=== PATIENT | female | born 2005 | race Caucasian/White ===

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

== ENCOUNTER 2023-02-01 02:22 | Emergency (ER) | payer OTHER ==
--- OUTSIDE RECORDS SUMMARY | 2023-02-01 02:26 | XMS REPORT | Continuity of Care Document ---
:2005 Author Organization [facility] t Address [address] [place] [address] Care Team Providers Name Role Phone AlbarranGabrielAdrian A Primary Care Physician Doctor Unassigned, [place] Attending Clinician Unavailable JAMARI PA Attending Clinician Unavailable Jamari Pa MD Attending Clinician Breezy Kuo Attending Clinician BREEZY OBRIEN Attending Clinician Unavailable Payers Payer Name Policy Type Policy Number Effective Date Expiration Date S ource Problems This patient has no known problems. Allergies, Adverse Reactions, Alerts Allergy Allergy Status Severity Reaction(s) Onset Inactive Treating Comm ents Source Name Type Date Date Clinician Estelafenmaryjo Propensi Active Rash Univer s sin ty to 09-10 ity of adverse 00:00: [place] reaction 00 Medical s Branch GUAIFENE DRUG Active Rash 2022-0 Univers SIN INGREDI 09-10 ity of 00:00: [place] 00 Medical Branch NO KNOWN Drug Active Univers ALLERGIE Class ity [facility] Social History Social Habit Start Date Stop Date Quantity Comments Source Gender identity [facility] [place] Sexual orientation [facility] [place] Sex Assigned At [birth year] [facility] 00:00:00 00:00:00 Medical Branch Smoking Status Start Date Stop Date Source Tobacco smoking consumption [facility] [place] [facility] unknown Branch Medications Ordered Filled Start Stop Current Ordering Indication Dosage Frequency Signature Comments Components Source Medication Medication Date Date Medication? Clinician (SIG) Name Name dexamethaso 2022- No 8mg 8 mg, [facility] ers ne sod phos 11-12 Oral, ity of PF 13:15: 13:11 ONCE, 1 [place] injection 8 00 :00 dose, On Medi roby mg Tue11/12/22 Branch at 0815, 1 mL acetaminoph 2022- No 1000mg 1,000 mg, Univers en 11-12 Oral, ity of (TYLENOL) 12:45: 12:52 [place]CE[place] tablet [place] :00 dose, On Medical 1,000 mg Tue11/12/22 Branc h at 0745, DEVIN ondansetron Yes [id number] 4mg Take 1 Univers 4 mg 8-04 tablet by ity of disintegrat 00:00: mouth [place] ing tablet 00 every 12 Medic al (twelve) Branch hours as needed for Nausea and Vomiting (N/V). ondansetron Yes [id number] 4mg Take 1 Univers 4 mg 8-04 tablet by ity of disintegrat 00:00: mouth [place] ing tablet 00 every 12 Medic al (twelve) Branch hours as needed for Nausea and Vomiting (N/V). amoxicillin 2022- Yes [id number] 500mg Take 1 Univers -pot 11-12 tablet by ity of clavulanate 00:00: 04:59 mouth [place] 500 mg 00 :00 the Medical (AUGMENTIN) morning Branc h 500-125 mg and 1 tablet tablet at noon and 1 tablet in the evening. Do all this for 10 days. acetaminoph 2022- Yes [id number] 1{tbl} Take 1 U nivers en-codeine 11-12-12 tablet by ity of 300-30 mg 00:00: 04:59 mouth [place] tablet 00 :00 every 6 Medical (six) Branch hours as needed for Pain (scale 7-10) for up to 7 days. Indication s: acute pain predniSONE 2022- Yes [id number] 20mg Take 1 Univers 20 mg 11-12- tablet by ity of tablet 00:00: 04:59 mouth in [place] 00 :00 the Medical morning Branch and 1 tablet in the evening. Do all this for 3 days. dicyclomine 2022-0 2022- No 20mg 20 mg, Uni vers (BENTYL) 09-11 Oral, ity of tablet 20 02:00: 01:05 ONCE, 1 [place] mg 00 :00 dose, On Medical Tue09/10/22 Branch at 2100, Routine proMETHazin 2022-2022- No 25mg 25 mg, IV Univers e [...] dose, On Tue09/10/22 at 1845, STAT ondansetron 2022-0 2022- No 4mg 4 mg, Slow Univers (ZOFRAN 09-10 IV Push, ity of (PF)) 22:45: 23:23 ONCE, 1 [place] injection 4 00 :00 dose, On Medi roby mg Tue09/10/22 Branch at 1745, DEVIN dicyclomine 2022-0 Yes [id number] 20mg Take 1 Univers 20 mg 6-02 tablet by ity of tablet 00:00: mouth 4 [place] 00 (four) Medical times Branch daily as needed for Abdominal pain. ondansetron 3-0 Yes [id number] 4mg Take 1 Univers 4 mg 6-02 tablet by ity of disintegrat 00:00: mouth [place] ing tablet 00 every 8 Medica l (eight) Branch hours as needed for Nausea and Vomiting (N/V). proMETHazin 3-0 Yes [id number] 25mg Take 1 Univers e 25 mg 6-02 tablet by ity of tablet 00:00: mouth [place] 00 every 6 Medical (six) Branch hours as needed for N/V unresponsi ve to Ondansetro n. dicyclomine 2022-0 Yes [id number] 20mg Take 1 Univers 20 mg 6-02 tablet by ity of tablet 00:00: mouth 4 [place] 00 (four) Medical times Branch daily as needed for Abdominal pain. ondansetron 2022-0 Yes [id number] 4mg Take 1 Univers 4 mg 6-02 tablet by ity of disintegrat 00:00: mouth [place] ing tablet 00 every 8 Medica l (eight) Branch hours as needed for Nausea and Vomiting (N/V). proMETHazin 2022-0 Yes [id number] 25mg Take 1 Univers e 25 mg 6-02 tablet by ity of tablet 00:00: mouth [place] 00 every 6 Medical (six) Branch hours as needed for N/V unresponsi ve to Ondansetro n. dicyclomine 0 Yes [id number] 20mg Take 1 Univers 20 mg 6-02 tablet by ity of tablet 00:00: mouth 4 [place] 00 (four) Medical times Branch daily as needed for Abdominal pain. ondansetron 2022-0 Yes [id number] 4mg Take 1 Univers 4 mg 6-02 tablet by ity of disintegrat 00:00: mouth [place] ing tablet 00 every 8 Medica l (eight) Branch hours as needed for Nausea and Vomiting (N/V). proMETHazin 2022-0 Yes [id number] 25mg Take 1 Univers e 25 mg 6-02 tablet by ity of tablet 00:00: mouth [place] 00 every 6 Medical (six) Branch hours as needed for N/V unresponsi ve to Ondansetro n. Vital Signs Vital Name Observation Time Observation Value Comments Source Systolic blood 2022-11-12 12:12:00 127 mm[facility]Hg[facility] 2022-11-12 12:12:00 94 mm[Hg] [facility] Heart rate 2022-11-12 12:12:00 108 /min [facility] Body temperature 2022-11-12 12:12:00 37.17 Nessa [facility] Respiratory rate 2022-11-12 12:12:00 16 /min [facility] Body height 2022-11-12 12:12:00 165.1 cm [facility] Body weight 2022-11-12 12:12:00 95.255 kg [facility] BMI 2022-11-12 12:12:00 34.95 kg/m2 [facility] Oxygen saturation in 2022-11-12 12:12:00 98 /min [place] Arterial blood by [facility] Pulse oximetry Branch Systolic blood 2022-09-11 01:50:00 107 mm[Hg] Univer sity of pressure [facility] Diastolic blood 2022-09-11 01:50:00 67 mm[Hg] Unive rsity of [facility] Heart rate 2022-09-11 01:50:00 98 /min [facility] Respiratory rate 2022-09-11 01:50:00 16 /min [facility] Oxygen saturation in 2022-09-11 01:50:00 99 /min [facility] Arterial blood by [facility] Pulse oximetry Branch Body temperature 2022-09-10 22:04:00 37.39 Nessa [facility] Body height 2022-09-10 22:04:00 165.1 cm [facility] Body weight 2022-09-10 22:04:00 100.245 kg [facility] BMI 2022-09-10 22:04:00 36.78 kg/m2 [facility] Procedures Procedure Date / Time Performed Performing Clinician Sour e REFERRAL- 2023-01-07 05:01:00 Doctor Unassigned, No [facility] REQUEST/RESPONSE Name [facility] ASSIGNMENT OF BENEFITS 2022-11-12 12:57:02 Doctor Unassigned, No [facility] Branch RAPID STREP SCREEN FOR 2022-11-12 12:19:00 Jamari Pa [facility] GROUP A [facility] Branch CONSENT/REFUSAL FOR 2022-11-12 12:08:08 Doctor Unassigned, No [facility] DIAGNOSIS AND Name [facility] TREATMENT POCT TEST 2022-09-11 00:57:00 Breezy Obrien [facility] COMP. METABOLIC PANEL 2022-09-11 00:47:00 Breezy Obrien [facility] ([id number]) [facility] URINALYSIS 2022-09-11 00:47:00 Breezy Obrien [facility] o [facility] CBC WITH DIFF 2022-09-10 23:22:00 Breezy Obrien [facility] NOTICE OF PRIVACY 2022-09-10 22:08:17 Doctor Unassigned, No [facility] PRACTICES Name [facility] CONSENT/REFUSAL FOR 2022-09-10 22:01:22 Doctor Unassigned, No [facility] DIAGNOSIS AND Name [facility] TREATMENT Encounters Start End Encounter Admission Attending Care Care Encounter Source Date/Time Date/Time Type Type Clinicians Facility Department ID 2023-01-07 2023-01-07 Orders Doctor CLEVE [id number] Univers 00:00:00 00:00:00 Only Unassigned, YULIANA [id number] ity of [place] [facility] [id number] Jose A as [id number] [address] 2022-11-12 2022-11-12 Emergency X [facility] ERT [id number] Univers 07:15:00 08:23:00 [facility] 2022-11-12 2022-11-12 Emergency [facility] [id number] Univers 07:15:00 08:23:00 Jamari LAWLER [id number] i ty of [place] [id number] [facility] [id number] [address] 2022-09-10 2022-09-10 Emergency [facility] [id number] Univers 17:06:00 20:55:00 Breezy LAWLER [id number] i ty of [place] [id number] [id number] [address] 2022-09-10 2022-09-10 Emergency X [facility] ERT [id number] Univers 17:06:00 20:55:00 BREEZY [facility] Results Test Description Test Time Test Comments Results Result Comments Source POCT TEST 2022-09-11 00:57:00 Test Item Value Reference Range Interpretation Comme nts POCT PREG (test code = 1605) Negative On board controls acceptable with C Line (test code = 3574) Yes POCT PREG LOT # (test code = 9036) [id number] POCT PREG TEST DATE (test code = 3576) 01/14/2024 Lab Interpretation (test code = 08633-4) Normal [facility] WITH [id number] 00:28:45 Test Item Value Reference Range Interpretation Comments WBC (test code = 11.89 See_Comment H [Automated 6290-2) message] The sy stem which generated this result transmitted reference range : 4.30 - 11.10 10*3/?L. The reference range was not used to interpret this result as normal/abnormal . RBC (test code = 5.30 See_Comment H [Automated 519-8) message] The sy stem which generated this [...] RDW-SD (test code = 41.6 fL 39.0-49.9 00308-2) RDW-CV (test code = 14.8 % 12.0-15.5 788-0) PLT (test code = 207 See_Comment [Automated 777-3) message] The sy stem which generated this result transmitted reference range : 166 - 358 10*3/ ?L. The reference r tiffany was not used to interpret this result as normal/abnormal . MPV (test code = 11.0 fL 9.5-12.9 26436-4) NRBC/100 WBC (test 0.0 See_Comment [Automat ed code = [id number]) message] The system which generated this result transmitted reference range : 0.0 - 10.0 /100 WBCs. The refer ence range was not u sed to interpret th is result as normal/abnormal . NRBC x10^3 (test code See_Comment [Auto mated = [id number]) message] The s ystem which generated this result transmitted reference range : 10*3/?L. The reference range was not used to interpret this result as normal/abnormal . GRAN MAT (NEUT) % 51.0 % (test code = 770-8) IMM GRAN % (test code 0.40 % = 1592230039) LYMPH % (test code = 40.3 % 736-9) MONO % (test code = 6.7 % 5905-5) EOS % (test code = 1.3 % 713-8) BASO % (test code = 0.3 % 706-2) GRAN MAT x10^3(ANC) 6.05 10*3/uL 1.88-7.09 (test code = 7190360924) IMM GRAN x10^3 (test 0.05 10*3/uL 0.00-0.06 code = 5869377701) LYMPH x10^3 (test code 4.79 10*3/uL 1.32-3.29 H = 731-0) MONO x10^3 (test code 0.80 10*3/uL 0.33-0.92 = 742-7) EOS x10^3 (test code = 0.16 10*3/uL 0.03-0.39 711-2) BASO x10^3 (test code 0.04 10*3/uL 0.01-0.07 = 704-7) REACT LYMPHS (test Rare code = 4785916951) Lab Interpretation Abnormal (test code = 91525-9) [facility]
[2023-02-01] MEDS ORDERED: CODEINE 30MG/APAP 300MG TAB ONE (03:18)
[2023-02-01] MEDS ORDERED: IBUPROFEN 400 MG TAB ONE (03:19)
[2023-02-01] MEDS ORDERED: ONDANSETRON 4 MG (ODT) TAB ONE (03:19)
[2023-02-01] MEDS ORDERED: METOCLOPRAMIDE 5 MG TAB ONE (03:19)
[2023-02-01 03:54] LABS: Specific Gravity 1.006 (1.005-1.030)
[2023-02-01 03:55] LABS: Specific Gravity 1.006 (1.005-1.030); Urine Bacteria None Seen /HPF (<20); Urine Bilirubin NEGATIVE (Negative); Urine Blood Negative (Negative); Urine Clarity Clear (Clear); Urine Color Colorless (Yellow); Urine Glucose NEGATIVE (Negative); Urine Protein NEGATIVE (Negative); Urine RBC None Seen /HPF (None Seen); Urine Urobilinogen Normal (Normal)
--- NOTE | 2023-02-01 04:39 | ER ---
Nurse's Notes [facility] Name: Saran Ziegler Age: 17 yrs Sex: Female : 2005 Arrival Date: 02/01/2023 Time: 02: Bed IW2 Private MD: Diagnosis: Infectious gastroenteritis and colitis, unspecified;Acute viral gastroenteritis, nausea and vomiting, headache Presentation: 02/01 02:49 Chief complaint: Patient states: fever and nausea x 3 days last medicated for fever on as6 Tuesday. Coronavirus screen: Vaccine status: Patient reports being unvaccinated. Ebola Screen: Patient negative for fever greater than or equal to 101.5 degrees Fahrenheit, and additional compatible Ebola Virus Disease symptoms. Initial Sepsis Screen: Does the patient meet any 2 criteria? No. Patient's initial sepsis screen is negative. Does the patient have a suspected source of infection? No. Patient's initial sepsis screen is negative. Risk Assessment: Do you want to hurt yourself or someone else? Patient reports no desire to harm self or others. 02:49 Method Of Arrival: Ambulatory as6 02:49 Acuity: BRUCE 4 as6 Triage Assessment: 02:51 General: Appears in no apparent distress. Behavior is calm, cooperative. Pain: Denies as6 pain. GI: Reports weakness and hot flashes. 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 - Social history:: Smoking status: Patient/guardian denies using tobacco, Stopped _ months ago 1. - Family history:: not pertinent. Screenin:21 [facility] ED Fall Risk Assessment (Adult) History of falling in the last 3 months, kl including since admission No falls in past 3 months (0 pts) Confusion or Disorientation No (0 pts) Intoxicated or Sedated No (0 pts) Impaired Gait No (0 pts) Mobility Assist Device Used No (0 pt) Altered Elimination No (0 pt) Score/Fall Risk Level 0 - 2 = Low Risk Oriented to surroundings, Maintained a safe environment. Abuse screen: Denies threats or abuse. Nutritional screening: No deficits noted. Tuberculosis screening: No symptoms or risk factors identified. Assessment: 03:20 General: Appears in no apparent distress. Behavior is calm, cooperative. Pain: Denies kl pain. Neuro: No deficits noted. Cardiovascular: No deficits noted. Respiratory: No deficits noted. Airway is patent Trachea midline Respiratory effort is even, unlabored, Respiratory pattern is regular, symmetrical. GI: Reports nausea. : No deficits noted. No signs and/or symptoms were reported regarding the genitourinary system. EENT: Reports nasal congestion. 04:50 Reassessment: Patient appears in no apparent distress at this time. Patient is alert, kl oriented x 3, equal unlabored respirations, skin warm/dry/pink. Vital Signs: 02:49 BP 115 / 61; Pulse 110; Resp 18; Temp 99.1(TE); Pulse Ox 99% on R/A; Weight 99.79 kg as6 (R); Height 5 ft. 6 in. ; 02:49 Body Mass Index 35.51 (99.79 kg, 167.64 cm) - Percentile 97.4 % as6 ED Course: 02:29 Patient arrived in ED. gm2 02:44 Fercho Denney MD is Attending Physician. sp4 02:51 Triage completed. as6 03:20 Urinalysis W/Microscopic Sent. kl 03:20 Test, Urine Sent. kl 03:20 COVID-19 SARS RT PCR Sent. kl 03:20 Influenza Screen (a \T\ B) Sent. kl 03:21 Patient has correct armband on for positive identification. Provided Education on: wait kl time. 04:00 No apparent distress. Resting quietly. kl 04:50 No provider procedures requiring assistance completed. Patient did not have IV access kl during this emergency room visit. Administered Medications: 03:10 Drug: Ondansetron PO 8 mg PO once Route: PO; kl 04:50 Follow up: Response: No adverse reaction; Marked relief of symptoms kl 03:10 Drug: Ibuprofen PO 800 mg PO once Route: PO; kl 04:50 Follow up: Response: No adverse reaction; Marked relief of symptoms kl 03:10 Drug: Acetaminophen-Codeine PO (300 mg-30 mg) 2 tabs PO once; RASS on ADMIN: Combtv4, kl Very Agttd3, Agttd2, Rstlss1, AlertClm0, Drwsy-1, Lt Sdtn-2, Mod Sdtn-3, Dp Sdtn-4, UnArsble-5 Route: PO; 04:50 Follow up: Response: No adverse reaction; Marked relief of symptoms 03:10 Drug: MetoCLOPramide PO 10 mg PO once Route: PO; 04:50 Follow up: Response: No adverse reaction; Marked relief of symptoms Outcome: 04:39 Discharge ordered by MD. dill 04:51 Discharged to home ambulatory, with significant other, 04:51 Condition: improved 04:51 Discharge instructions given to patient, Instructed on discharge instructions, follow up and referral plans. medication usage, Demonstrated understanding of instructions, follow-up care, medications, Prescriptions given X 2, 04:51 Patient left the ED. Signatures: Garima Crooks RN RN kl Slawson, Ashby, RN RN as6 Fercho Denney MD MD sp4 Codie Odell 2
--- NOTE | 2023-02-01 04:39 | EDPHYS ---
Physician Documentation [facility] Name: Saran Ziegler Age: 17 yrs Sex: Female : 2005 Arrival Date: 02/01/2023 Time: 02: Bed IW2 Private MD: ED Physician Fercho Denney HPI: 02/01 02:59 This 17 yrs old Female presents to ER via Ambulatory with complaints of Flu sp4 Symptoms, Fever. 02:59 17-year-old female presents with acute onset of fever at home starting 4 days ago sp4 associated with vomiting, fatigue, headache, rhinorrhea. Patient states temperature was as high as 101.0. Patient reports history of ADHD, she takes Adderall 15 milligram extended release tablet. Patient denied any diarrhea. Reported sick contacts at home.. 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 - Social history:: Smoking status: Patient/guardian denies using tobacco, Stopped _ months ago 1. - Family history:: not pertinent. ROS: 02:59 Constitutional: Positive for fever, positive fatigue, positive headache, positive sp4 rhinorrhea, positive vomiting 02:59 All other systems are negative, Exam: 02:59 Constitutional: This is a well developed, well nourished patient who is awake, alert, sp4 and in no acute distress. Head/Face: Normocephalic, atraumatic. Eyes: Pupils equal round and reactive to light, extra-ocular motions intact. Lids and lashes normal. Conjunctiva and sclera are not injected. Cornea within normal limits. Periorbital areas with no swelling, redness, or edema. ENT: Nares patent. No nasal discharge, no septal abnormalities noted. Tympanic membranes are normal and external auditory canals are clear. Oropharynx with no redness, swelling, or masses, exudates, or evidence of obstruction, uvula midline. Mucous membranes moist. Neck: Trachea midline, no thyromegaly or masses palpated, and no cervical lymphadenopathy. Supple, full range of motion without nuchal rigidity, or vertebral point tenderness. Chest/axilla: Normal chest wall appearance and motion. Nontender with no deformity. No lesions are appreciated. Cardiovascular: Regular rate and rhythm with a normal S1 and S2. No gallops, murmurs, or rubs. Normal PMI, no JVD. No pulse deficits. Respiratory: Lungs have equal breath sounds bilaterally, clear to auscultation and percussion. No rales, rhonchi or wheezes noted. No increased work of breathing, no retractions or nasal flaring. Abdomen/GI: Soft, non-tender, with normal bowel sounds. No distension or tympany. No guarding or rebound. No evidence of tenderness throughout. Back: No spinal tenderness. No costovertebral tenderness. Skin: Warm, dry with normal turgor. Normal color with no rashes, no lesions, and no evidence of cellulitis. MS/ Extremity: Pulses equal, no cyanosis. Neurovascular intact. Full, normal range of motion. Neuro: Awake and alert, GCS 15, oriented to person, place, time, and situation. Cranial nerves II-XII grossly intact. Motor strength 5/5 in all extremities. Sensory grossly intact. Psych: Awake, alert, with orientation to person, place and time. Behavior, mood, and affect are within normal limits Vital Signs: 02:49 BP 115 / 61; Pulse 110; Resp 18; Temp 99.1(TE); Pulse Ox 99% on R/A; Weight 99.79 kg as6 (R); Height 5 ft. 6 in. ; 02:49 Body Mass Index 35.51 (99.79 kg, 167.64 cm) - Percentile 97.4 % as6 MDM: 02:45 Patient medically screened. sp4 03:02 Differential diagnosis: viral Infection, bacterial infection. Data reviewed: vital sp4 signs, nurses notes, old medical records, lab test result(s), radiologic studies, CT scan, ultrasound. 04:37 ED course: Patient is negative for COVID and influenza. Patient felt improved and was sp4 able to tolerate p.o. water . Will advise clear liquid diet for 24 hours after that brat diet. Will prescribe Phenergan as needed for nausea and also ibuprofen high-dose as needed for headache, will be provided for 3 days work release. . 02/01 02:44 Order name: Influenza Screen (a \T\ B); Complete Time: 04: sp4 02/01 02:44 Order name: COVID-19 SARS RT PCR; Complete Time: : sp4 02/01 02:45 Order name: Test, Urine; Complete Time: 04: sp4 02/01 02:58 Order name: Urinalysis W/Microscopic; Complete Time: : sp4 02/01 02:59 Order name: PO challenge; Complete Time: 03:20 sp4 Administered Medications: 03:10 Drug: Ondansetron PO 8 mg PO once Route: PO; kl 04:50 Follow up: Response: No adverse reaction; Marked relief of symptoms kl 03:10 Drug: Ibuprofen PO 800 mg PO once Route: PO; kl 04:50 Follow up: Response: No adverse reaction; Marked relief of symptoms kl 03:10 Drug: Acetaminophen-Codeine PO (300 mg-30 mg) 2 tabs PO once; RASS on ADMIN: Combtv4, kl Very Agttd3, Agttd2, Rstlss1, AlertClm0, Drwsy-1, Lt Sdtn-2, Mod Sdtn-3, Dp Sdtn-4, UnArsble-5 Route: PO; 04:50 Follow up: Response: No adverse reaction; Marked relief of symptoms kl 03:10 Drug: MetoCLOPramide PO 10 mg PO once Route: PO; kl 04:50 Follow up: Response: No adverse reaction; Marked relief of symptoms kl Disposition Summary: 02/01/23 04:39 Discharge Ordered Problem: new sp4 Symptoms: have improved sp4 Condition: Stable sp4 Diagnosis - Infectious gastroenteritis and colitis, unspecified sp4 - Acute viral gastroenteritis, nausea and vomiting, headache sp4 Followup: sp4 - With: Private Physician - When: 7 - 10 days - Reason: Recheck today's complaints Discharge Instructions: - Discharge Summary Sheet sp4 - Viral Gastroenteritis, Adult sp4 Forms: - Patient Portal Instructions sp4 Prescriptions: - Ibuprofen 800 mg Oral tablet - take 1 tablet ORAL route every 8 hours As needed PRN headache; 30 tablet; sp4 Refills: 0, Product Selection Permitted - promethazine 25 mg Oral tablet - take 1 tablet ORAL route every 6 hours As needed PRN nausea; 30 tablet; sp4 Refills: 0, Product Selection Permitted Signatures: Dispatcher [employer] Garima Meng RN RN kl Slawson, Ashby, RN RN as6 Fercho Denney MD MD sp4
== END 2023-02-01 04:51 | disposition home or self-care (01) ==
LOC: ER 02:22
DX: A08.4 Viral intestinal infection, unspecified (principal); R51.9 Headache, unspecified; Z20.822 Contact with and (suspected) exposure to COVID-19; Z88.8 Allergy status to other drugs, medicaments and biological substances; Z91.018 Allergy to other foods
CPT/HCPCS: 81001; 81025; 87635; 87804 ×2; Q0162

== ENCOUNTER 2023-11-28 09:54 | Emergency (ER) | payer OTHER ==
[2023-11-28] MEDS ORDERED: KETOROLAC 30 MG/ML INJ ONE (10:20)
[2023-11-28] MEDS ORDERED: ONDANSETRON 4 MG/2 ML VIAL ONE (10:20)
[2023-11-28] MEDS ORDERED: FAMOTIDINE 20 MG/2 ML VIAL IV ONE (10:20)
[2023-11-28] MEDS ORDERED: NA CHLORIDE 0.9% 1,000 ML ONE (10:20)
[2023-11-28 10:49] LABS: Absolute Eosinophils 0.1 K/uL (0-0.5); Absolute Lymphocytes (CBC) 1.6 K/uL (0.7-4.9); Absolute Monocytes 0.6 K/uL (0.1-1.3); Absolute Neutrophil 7.6 K/uL (1.8-8.0); Basophils % 0.3 % (0-1.3); Eosinophils % 1.4 % (0-4.4); Hematocrit 41.1 % (36.0-45.0); Lymphocytes % 16.1 % (15.3-44.8); MCH 24.6 pg (27.0-35.0); MCHC 31.7 g/dL (32.0-36.0); MCV 77.6 fL (80-100); MPV 9.3 fL (7.6-11.3); Monocytes % 6.1 % (3.3-12.3); Neutrophils % 76.1 % (41.7-73.7); Platelets 258 thou/uL (152-406); Red Cell Distribution Width 16.3 % (12.1-15.2)
[2023-11-28 10:56] LABS: Specific Gravity 1.019 (1.005-1.030)
[2023-11-28 11:00] LABS: Specific Gravity 1.019 (1.005-1.030); Urine Bacteria >50 /HPF (<20); Urine Bilirubin NEGATIVE (Negative); Urine Blood Negative (Negative); Urine Clarity Extremely Turbid (Clear); Urine Color Light-Yellow (Yellow); Urine Culture Reflex Order NOT NEEDED; Urine Glucose NEGATIVE (Negative); Urine Ketones NEGATIVE (Negative); Urine Microscopic Reflex YN ORDER UMIC; Urine Mucus Slight /HPF (None Seen); Urine Nitrite NEGATIVE (Negative); Urine Protein TRACE (Negative); Urine RBC <5 /HPF (None Seen); Urine Urobilinogen Normal (Normal); Urine WBC <5 /HPF (<5)
[2023-11-28 11:08] LABS: Albumin 3.6 g/dL (3.4-5.0); Albumin/Globulin Ratio 0.8 (1.1-1.8); Anion Gap 6.9 mEq/L (5.0-15.0); Bilirubin Total 0.5 mg/dL (0.2-1.0); Globulin 4.7 g/dL (2.3-3.5); Potassium 3.9 mEq/L (3.5-5.1); Protein, Total 8.3 g/dL (6.4-8.2)
[2023-11-28] MEDS ORDERED: CEFTRIAXONE 1000 MG/VIAL ONE (11:54)
--- NOTE | 2023-11-28 12:19 | EDPHYS ---
Physician Documentation [facility] Name: Saran Ziegler Age: 18 yrs Sex: Female : 2005 Arrival Date: 11/28/2023 Time: 09:54 Bed 15 Private MD: ED Physician Shirley Bustos HPI: 11/27 10:15 This 18 yrs old Female presents to ER via Ambulatory with complaints of Vomiting. sb4 10:15 The patient presents to the emergency department with nausea, vomiting. Onset: The sb4 symptoms/episode began/occurred last night. Possible causes: alcohol. The symptoms are aggravated by food , alcohol, The symptoms are alleviated by nothing. Associated signs and symptoms: The patient has no apparent associated signs or symptoms. The patient has experienced similar episodes in the past, a few times. The patient has not recently seen a physician. 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 - Infectious Disease History:: Denies. - Social history:: Smoking status: Reported history of juuling and/or vaping. Patient uses alcohol, occasionally. street drugs, marijuana. ROS: 10:15 Constitutional: Negative for fever, chills, and weight loss, sb4 10:15 Abdomen/GI: Positive for nausea and vomiting, 10:15 All other systems are negative, Exam: 10:15 Constitutional: This is a well developed, well nourished patient who is awake, alert, sb4 and in no acute distress. Head/Face: Normocephalic, atraumatic. Eyes: Extra-ocular motions intact. Periorbital areas with no swelling, redness, or edema. Respiratory: Lungs have equal breath sounds bilaterally, clear to auscultation and percussion. No rales, rhonchi or wheezes noted. No increased work of breathing, no retractions or nasal flaring. Abdomen/GI: Soft, non-tender, no distension. Skin: Warm, dry with normal turgor. Normal color with no rashes, no lesions, and no evidence of cellulitis. 10:15 Cardiovascular: Rate: tachycardic, Rhythm: regular, 10:15 Abdomen/GI: Vital Signs: 10:02 BP 143 / 66; Pulse 106; Resp 19; Temp 98.2(O); Pulse Ox 98% on R/A; Weight 117.93 kg; ll1 Height 5 ft. 6 in. ; Pain 4/10; 10:25 BP 135 / 74; Pulse 80; Resp 17; Pulse Ox 98% on R/A; rs5 12:20 BP 132 / 77; Pulse 76; Resp 17; Pulse Ox 98% on R/A; rs5 10:02 Body Mass Index 41.96 (117.93 kg, 167.64 cm) ll1 10:02 Pain Scale: Adult ll1 MDM: 09:58 Patient medically screened. sb4 12:19 Data reviewed: vital signs, nurses notes, lab test result(s), and as a result, I will sb4 discharge patient. Counseling: I had a detailed discussion with the patient and/or guardian regarding the historical points, exam findings, and any diagnostic results supporting the discharge/admit diagnosis, lab results, to return to the emergency department if symptoms worsen or persist or if there are any questions or concerns that arise at home. 11/27 10:06 Order name: Test, Urine; Complete Time: 11:40 [facility] 11/27 10:14 Order name: CBC with Diff; Complete Time: 10:50 [facility] 11/27 10:14 Order name: CMP; Complete Time: 11:40 [facility] 11/27 10:14 Order name: Lipase; Complete Time: 11:40 4 11/27 10:14 Order name: Urinalysis w/ reflexes; Complete Time: 11:40 [facility] 11/27 10:14 Order name: IV Saline Lock; Complete Time: 10:44 4 11/27 10:14 Order name: Labs collected and sent; Complete Time: 10:44 [facility] 11/27 11:43 Order name: PO challenge; Complete Time: 12:10 sb4 Administered Medications: 10:30 Drug: NS 0.9% IV 1000 ml IV at 1 bolus Per protocol; 1000 mL bolus Route: IV; Rate: 1 rs5 bolus; Site: right antecubital; 11:35 Follow up: IV Status: Completed infusion; IV Intake: 1000ml rs5 10:30 Drug: Famotidine IVP 20 mg IVP once; dilute with 10 mL 0.9% NaCl; give over 2 minutes rs5 Route: IVP; Site: right upper arm; 10:45 Follow up: Response: No adverse reaction rs5 10:30 Drug: TORadol - Ketorolac IVP 15 mg IVP once Route: IVP; Site: right upper arm; rs5 11:01 Follow up: Response: No adverse reaction; Pain is decreased rs5 10:30 Drug: Ondansetron IVP 4 mg IVP once; over 2 minutes Route: IVP; Site: right upper arm; rs5 11:01 Follow up: Response: No adverse reaction rs5 11:50 Drug: Rocephin IV 1 grams IV at calculated rate once; Given slow IV push per pharmacy rs5 instructions Route: IV; Rate: calculated rate; Site: right upper arm; 12:05 Follow up: Response: No adverse reaction; IV Status: Completed infusion rs5 Disposition Summary: 11/28/23 12:19 Discharge Ordered Notes: Location: Home sb4 Problem: new sb4 Symptoms: have improved sb4 Condition: Stable sb4 Diagnosis - Nausea with vomiting, unspecified sb4 - UTI/ Urinary tract infection, site not specified sb4 Followup: sb4 - With: Emergency Department - When: As needed - Reason: Trouble breathing, Worsening of condition Discharge Instructions: - Discharge Summary Sheet sb4 - Nausea and Vomiting, Adult sb4 - Urinary Tract Infection, Adult, [id number] sb4 Forms: - Antibiotic Education sb4 - Patient Portal Instructions sb4 - Leadership Thank You Letter sb4 - Work release form rs5 Prescriptions: - Macrobid 100 mg Oral Capsule - take 1 capsule ORAL route every 12 hours for 7 days; 14 capsule; Refills: 0, sb4 Product Selection Permitted - ondansetron 8 mg Oral Tablet,disintegrating - take 1 tablet ORAL route every 8 hours; 12 tablet; Refills: 0, Product sb4 Selection Permitted Signatures: Dispatcher [employer] Maggy Meng RN RN ll1 Tori Rushing PAAlexandra PAAlexandra sb4 Ronald Guevara RN RN rs5 Corrections: (The following items were deleted from the chart) 10:06 10:06 Test, Urine+UC.LAB.BRZ ordered. EDMS EDMS 10:15 10:15 CBC+H.LAB.BRZ ordered. EDMS EDMS 10:15 10:15 COMPREHENSIVE METABOLIC PANEL+C.LAB.BRZ ordered. EDMS EDMS 10:15 10:15 LIPASE+C.LAB.BRZ ordered. EDMS EDMS 10:15 10:15 Urinalysis+U.LAB.BRZ ordered. EDMS EDMS
--- NOTE | 2023-11-28 12:19 | ER ---
Nurse's Notes [facility] Name: Saran Ziegler Age: 18 yrs Sex: Female : 2005 Arrival Date: 11/28/2023 Time: 09:54 Bed 15 Private MD: Diagnosis: Nausea with vomiting, unspecified;UTI/ Urinary tract infection, site not specified Presentation: 11/27 10:02 Chief complaint:. Chief complaint: Patient states: throwing up since 9pm last night ll1 after drinking, cannot hold down water, has sore throat, chest hurts, has headache. Coronavirus screen: Vaccine status: Patient reports receiving the 2nd dose of the covid vaccine. Ebola Screen: Patient negative for fever greater than or equal to 101.5 degrees Fahrenheit, and additional compatible Ebola Virus Disease symptoms Patient denies exposure to infectious person. Patient denies travel to an Ebola-affected area in the 21 days before illness onset. No symptoms or risks identified at this time. Initial Sepsis Screen: Does the patient meet any 2 criteria? HR > 90 bpm. No. Patient's initial sepsis screen is negative. Does the patient have a suspected source of infection? No. Patient's initial sepsis screen is negative. Risk Assessment: Do you want to hurt yourself or someone else? Patient reports no desire to harm self or others. Onset of symptoms was November 27, 2023 at 21:00. 10:02 Method Of Arrival: Ambulatory ll1 10:02 Acuity: BRUCE 3 ll1 Triage Assessment: 10:05 General: Appears in no apparent distress. Behavior is calm, cooperative. Pain: ll1 Complains of pain in face Pain currently is 4 out of 10 on a pain scale. Quality of pain is described as aching. EENT: Reports sore throat. Neuro: Level of Consciousness is awake, alert, obeys commands, Oriented to person, place, time, situation. Cardiovascular: Patient's skin is warm and dry. Respiratory: Airway is patent Respiratory effort is even, unlabored, Respiratory pattern is regular, symmetrical. GI: Abdomen is round non-distended, Reports nausea, vomiting. : No signs and/or symptoms were reported regarding the genitourinary system. Derm: No signs and/or symptoms reported regarding the dermatologic system. Musculoskeletal: No signs and/or symptoms reported regarding the musculoskeletal system. [employer]TE[employer]CE: 10:05 LMP 11/21/2023, unknown ll1 Historical: - Allergies: 10:05 Strawberries; ll1 10:05 ROBITUSSIN; ll1 10:05 jalapenos; ll1 - PMHx: 10:05 Tachycardia; Depression; ll1 - PSHx: 10:05 None; ll1 - Immunization history:: Client reports receiving the 2nd dose of the Covid vaccine. - Infectious Disease History:: Denies. - Social history:: Smoking status: Reported history of juuling and/or vaping. Patient uses alcohol, occasionally. street drugs, marijuana. Screenin:10 [facility] ED Fall Risk Assessment (Adult) History of falling in the last 3 months, rs5 including since admission No falls in past 3 months (0 pts) Confusion or Disorientation No (0 pts) Intoxicated or Sedated No (0 pts) Impaired Gait No (0 pts) Mobility Assist Device Used No (0 pt) Altered Elimination No (0 pt) Score/Fall Risk Level 0 - 2 = Low Risk Oriented to surroundings, Maintained a safe environment. Abuse screen: Denies threats or abuse. Nutritional screening: No deficits noted. Tuberculosis screening: No symptoms or risk factors identified. Assessment: 10:10 General: Appears in no apparent distress. comfortable, Behavior is calm, cooperative. rs5 Pain: Complains of pain in abdomen Pain currently is 3 out of 10 on a pain scale. Quality of pain is described as aching, Is continuous. Neuro: Level of Consciousness is awake, alert, obeys commands, Oriented to person, place, time, situation. Cardiovascular: Patient's skin is warm and dry. Respiratory: Airway is patent Respiratory effort is even, unlabored, Respiratory pattern is regular, symmetrical. 10:10 GI: Abdomen is round non-distended, Abd is soft and non tender X 4 quads. Reports rs5 nausea. : No signs and/or symptoms were reported regarding the genitourinary system. EENT: No signs and/or symptoms were reported regarding the EENT system. Derm: Skin is intact, Skin is pink, warm \T\ dry. Musculoskeletal: Range of motion: intact in all extremities. 11:12 Reassessment: Patient and/or family updated on plan of care and expected duration. Pain rs5 level reassessed. Patient is alert, oriented x 3, equal unlabored respirations, skin warm/dry/pink. 11:45 Reassessment: To bedside with crackers and juice for PO challenge per MD orders, denies rs5 nausea at this moment. 11:45 Reassessment: Patient and/or family updated on plan of care and expected duration. Pain rs5 level reassessed. Patient is alert, oriented x 3, equal unlabored respirations, skin warm/dry/pink. pt consumed crackers and juice, denies nausea at this moment. 12:05 Reassessment: Patient and/or family updated on plan of care and expected duration. Pain rs5 level reassessed. Patient is alert, oriented x 3, equal unlabored respirations, skin warm/dry/pink. Vital Signs: 10:02 BP 143 / 66; Pulse 106; Resp 19; Temp 98.2(O); Pulse Ox 98% on R/A; Weight 117.93 kg; ll1 Height 5 ft. 6 in. ; Pain 4/10; 10:25 BP 135 / 74; Pulse 80; Resp 17; Pulse Ox 98% on R/A; rs5 12:20 BP 132 / 77; Pulse 76; Resp 17; Pulse Ox 98% on R/A; rs5 10:02 Body Mass Index 41.96 (117.93 kg, 167.64 cm) ll1 10:02 Pain Scale: Adult ll1 ED Course: 09:56 Patient arrived in ED. mr 09:56 [facility] sb[facility] 09:56 Shirley Bustos MD is Attending Physician. sb4 10:05 Triage completed. ll1 10:05 Arm band placed on right wrist. ll1 10:10 Patient has correct armband on for positive identification. Placed in gown. Bed in low rs5 position. Call light in reach. Side rails up X2. 10:10 No provider procedures requiring assistance completed. rs5 10:20 Inserted saline lock: 24 gauge in right upper arm, using aseptic technique. Blood rs5 collected. Flushed with 10 mL NS. 10:44 Ronald Guevara, RN is Primary Nurse. rs5 12:24 IV discontinued, intact, bleeding controlled, No redness/swelling at site. Pressure rs5 dressing applied. Administered Medications: 10:30 Drug: NS 0.9% IV 1000 ml IV at 1 bolus Per protocol; 1000 mL bolus Route: IV; Rate: 1 rs5 bolus; Site: right antecubital; 11:35 Follow up: IV Status: Completed infusion; IV Intake: 1000ml rs5 10:30 Drug: Famotidine IVP 20 mg IVP once; dilute with 10 mL 0.9% NaCl; give over 2 minutes rs5 Route: IVP; Site: right upper arm; 10:45 Follow up: Response: No adverse reaction rs5 10:30 Drug: TORadol - Ketorolac IVP 15 mg IVP once Route: IVP; Site: right upper arm; rs5 11:01 Follow up: Response: No adverse reaction; Pain is decreased rs5 10:30 Drug: Ondansetron IVP 4 mg IVP once; over 2 minutes Route: IVP; Site: right upper arm; rs5 11:01 Follow up: Response: No adverse reaction rs5 11:50 Drug: Rocephin IV 1 grams IV at calculated rate once; Given slow IV push per pharmacy rs5 instructions Route: IV; Rate: calculated rate; Site: right upper arm; 12:05 Follow up: Response: No adverse reaction; IV Status: Completed infusion rs5 Medication: 11:33 VIS not applicable for this client. rs5 Intake: 11:35 IV: 1000ml; Total: 1000ml. rs5 Outcome: 12:19 Discharge ordered by . sb4 12:24 Discharged to home ambulatory, rs5 12:24 Condition: stable 12:24 Discharge instructions given to patient, family, Instructed on discharge instructions, follow up and referral plans. medication usage, Demonstrated understanding of instructions, follow-up care, medications, Prescriptions given X 1, 12:26 Patient left the ED. rs5 Signatures: Berta Chan, Reg Reg mr Maggy Crooks, RN RN ll1 Tori Rushing PA-C PATessaC sb4 Ronald Guevara RN RN rs5 Corrections: (The following items were deleted from the chart) 13:21 11:39 BP 132 / 77; Pulse 76bpm; Resp 17bpm; Pulse Ox 98% RA; rs5 rs5
[2023-11-28 12:32] VITALS: BP 143/66; TEMP 98.2; O2SAT 98
--- OUTSIDE RECORDS SUMMARY | 2023-11-29 13:47 | XMS REPORT | Continuity of Care Document ---
Author Name Unknown Address [address] [facility] [address]. [address] [place] [address] [facility] Address [address] [facility]. [address] [place] [address] Care Team Providers Care Canoe Inspector Final Name Role Phone ALBARRANJOSEFA YUNGADRIAN A Primary Care Physician Unavailab TIMOTHY Abdul Attending Clinician Unavailable TIMOTHY RODRIGUEZ Attending Clinician Unavailable Timothy Rodriguez DO Attending Clinician [phone] ADOLPH METCALF Attending Clinician UnavailAdolph De La Garza MD Attending Clinician [phone] Doctor Unassigned, [place] Attending Clinician U navailable JAMARI PA Attending Clinician Unavailable Jamari Pa MD Attending Clinician [phone] BREEZY OBRIEN Attending Clinician Unavailable Breezy Kuo Attending Clinician [phone] Payers Payer Name Policy Type Policy Number Effective Date Expirati on Date Source [facility] [id number] 2023 00:00:00 Allergies, Adverse Reactions, Alerts Allergy Name Allergy Type Status Severity Reaction(s) Onset Date Inactive Date Treating Clinician Comments Source Guaifene sin Propensi ty to adverse reaction s Active Rash 09-10 00:00: 00 [facility] GUAIFENE SIN DRUG INGREDI Active Rash 09-10 00:00: 00 [facility] NO KNOWN ALLERGIE S Drug Class Active [facility] Social History Social Habit Start Date Stop Date Quantity Comments Source Gender identity [facility] Sex [facility] at 2005 00:00:00 2005 00:00:00 [facility] Smoking Status Start Date Stop Date Source Tobacco smoking consumption unknown [facility] Medications Ordered Medication Name Filled Medication Name Start Date Stop Date Current Medication? Ordering Clinician Indication Dosage Frequency Signature (SIG) Comments Components Source ondansetron (ZOFRAN-ODT ) disintegrat ing tablet 8 mg 11-14 18:15: 00 11-14 18:00 :00 No 8mg 8 mg, Oral, ONCE, 1 dose, On Tue11/15/23 at 1315, Routine [facility] ondansetron 4 mg disintegrat ing tablet 11-14 00:00: 00 Yes [id number] 4mg Take 1 tablet by mouth every 8 (eight) hours as needed for Nausea and Vomiting (N/V). [facility] dexamethaso ne sod phos PF injection 8 mg 11-12 13:15: 00 11-12 13:11 :00 No 8mg 8 mg, Oral, ONCE, 1 dose, On Tue11/12/22 at 0815, 1 mL [facility] acetaminoph en (TYLENOL) tablet 1,000 mg 11-12 12:45: 00 11-12 12:52 :00 No 1000mg 1,000 mg, Oral, ONCE, 1 dose, On Tue11/12/22 at 0745, DEVIN [facility] ondansetron 4 mg disintegrat ing tablet 11-12 00:00: 00 11-14 00:00 :00 No [id number] 4mg Take 1 tablet by mouth every 12 (twelve) hours as needed for Nausea and Vomiting (N/V). [facility] amoxicillin -pot clavulanate 500 mg (AUGMENTIN) 500-125 mg tablet 2023-0 8-04 00:00: 00 11-23 04:59 :00 No [id number] 500mg Take 1 tablet by mouth in the morning and 1 tablet at noon and 1 tablet in the evening. Do all this for 10 days. [facility] acetaminoph en-codeine 300-30 mg tablet 804 00:00: 00 11-20 04:59 :00 No [id number] 1{tbl} Take 1 tablet by mouth every 6 (six) hours as needed for Pain (scale 7-10) for up to 7 days. Indication s: acute pain [facility] predniSONE 20 mg tablet 11-12 00:00: 00 11-16 04:59 :00 No [id number] 20mg Take 1 tablet by mouth in the morning and 1 tablet in the evening. Do all this for 3 days. [facility] dicyclomine (BENTYL) tablet 20 mg 09-11 02:00: 00 09-11 01:05 :00 No 20mg 20 mg, Oral, ONCE, 1 dose, On Tue09/10/22 at 2100, Routine [facility] proMETHazin e (PHENERGAN) 25 mg in NaCl 0.9% (NS) 50 mL IV piggyback 09-11 01:00: 00 09-11 01:06 :00 No 25mg 25 mg, IV Piggyback, ONCE, 1 dose, On Tue09/10/22 at 2000, DEVIN [facility] NaCl 0.9% (NS) bolus infusion 1,000 mL 09-10 23:45: 00 09-11 00:57 :00 No 1000mL at 999 mL/hr, 1,000 mL, IV Infusion, ONCE, 1 dose, On Tue09/10/22 at 1845, STAT [facility] ondansetron (ZOFRAN (PF)) injection 4 mg 09-10 22:45: 00 09-10 23:23 :00 No 4mg 4 mg, Slow IV Push, ONCE, 1 dose, On Tue09/10/22 at 1745, DEVIN [facility] dicyclomine 20 mg tablet 09-10 00:00: 00 Yes [id number] 20mg Take 1 tablet by mouth 4 (four) times daily as needed for Abdominal pain. [facility] proMETHazin e 25 mg tablet 09-10 00:00: 00 Yes [id number] 25mg Take 1 tablet by mouth every 6 (six) hours as needed for N/V unresponsi ve to Ondansetro n. [facility] ondansetron 4 mg disintegrat ing tablet 09-10 00:00: 00 11-14 00:00 :00 No [id number] 4mg Take 1 tablet by mouth every 8 (eight) hours as needed for Nausea and Vomiting (N/V). [facility] Vital Signs Vital Name Observation Time Observation Value Comments S ource Systolic blood pressure 2023-11-15 17:12:00 123 mm[Hg] [facility] Diastolic blood pressure 2023-11-15 17:12:00 98 mm[Hg] [facility] Heart rate 2023-11-15 17:12:00 92 /min [facility] Body temperature 2023-11-15 17:12:00 37 Nessa [facility] Respiratory rate 2023-11-15 17:12:00 18 /min [facility] Body height 2023-11-15 17:12:00 167.6 cm [facility] Body weight 2023-11-15 17:12:00 117.935 kg [facility] BMI 2023-11-15 17:12:00 41.97 kg/m2 [facility] Oxygen saturation in Arterial blood by Pulse oximetry 2023-11-15 17:12:00 100 /min [facility] BMI 2023-11-14 19:31:00 43.27 kg/m2 [facility] Oxygen saturation in Arterial blood by Pulse oximetry 2023-11-14 19:31:00 99 /min [facility] Systolic blood pressure 2023-11-14 19:31:00 123 mm[Hg] [facility] Diastolic blood pressure 2023-11-14 19:31:00 85 mm[Hg] [facility] Heart rate 2023-11-14 19:31:00 102 /min [facility] Body temperature 2023-11-14 19:31:00 37.28 Nessa [facility] Respiratory rate 2023-11-14 19:31:00 18 /min [facility] Body height 2023-11-14 19:31:00 165.1 cm [facility] Body weight 2023-11-14 19:31:00 117.935 kg [facility] Systolic blood pressure 2022-11-12 12:12:00 127 mm[Hg] [facility] Diastolic blood pressure 2022-11-12 12:12:00 94 mm[Hg] [facility] Heart rate 2022-11-12 12:12:00 108 /min [facility] Body temperature 2022-11-12 12:12:00 37.17 Nessa [facility] Respiratory rate 2022-11-12 12:12:00 16 /min [facility] Body height 2022-11-12 12:12:00 165.1 cm [facility] Body weight 2022-11-12 12:12:00 95.255 kg [facility] BMI 2022-11-12 12:12:00 34.95 kg/m2 [facility] Oxygen saturation in Arterial blood by Pulse oximetry 2022-11-12 12:12:00 98 /min [facility] Oxygen saturation in Arterial blood by Pulse oximetry 2022-09-11 01:50:00 99 /min [facility] Systolic blood pressure 2022-09-11 01:50:00 107 mm[Hg] [facility] Diastolic blood pressure 2022-09-11 01:50:00 67 mm[Hg] [facility] Heart rate 2022-09-11 01:50:00 98 /min [facility] Respiratory rate 2022-09-11 01:50:00 16 /min [facility] Body temperature 2022-09-10 22:04:00 37.39 Nessa [facility] Body height 2022-09-10 22:04:00 165.1 cm [facility] Body weight 2022-09-10 22:04:00 100.245 kg [facility] BMI 2022-09-10 22:04:00 36.78 kg/m2 [facility] Procedures Procedure Date / Time Performed Performing Clinicia n Source INFLUENZA A/B RSV COVID NAAT 2023-11-15 17:59:00 Timothy Rodriguez [facility] REFERRAL- REQUEST/RESPONSE 2023-01-07 05:01:00 Doctor Unassigned, [place] [facility] ASSIGNMENT OF BENEFITS 2022-11-12 12:57:02 Docto r Unassigned, [place] [facility] RAPID STREP SCREEN FOR GROUP A 2022-11-12 12:19:00 Jamari Pa [facility] CONSENT/REFUSAL FOR DIAGNOSIS AND TREATMENT 2022-11-12 12:08:08 Doctor Unassigned, [place] [facility] POCT TEST 2022-09-11 00:57:00 Breezy Obrien [facility] COMP. METABOLIC PANEL ([id number]) 2022-09-11 00:47:00 Breezy Obrien [facility] URINALYSIS 2022-09-11 00:47:00 Breezy Obrien [facility] CBC WITH DIFF 2022-09-10 23:22:[address] [facility] NOTICE OF PRIVACY PRACTICES 2022-09-10 22:08:17 Doctor Unassigned, [place] [facility] CONSENT/REFUSAL FOR DIAGNOSIS AND TREATMENT 2022-09-10 22:01:22 Doctor Unassigned, [place] [facility] Encounters Start Date/Time End Date/Time Encounter Type Admission Type Attending Clinicians Care Facility Care Department Encounter ID Source 2023-11-15 12:13:00 2023-11-15 15:32:00 Emergency X TIMOTHY RODRIGUEZ [facility] ERT [id number] [facility] 2023-11-15 12:13:00 2023-11-15 15:32:00 Emergency Rodriguez, Timothy [place] 1.2840.114 350.1.13.10 [id number] [id number] [facility] 2023-11-14 14:32:00 2023-11-14 16:58:00 Emergency X ADOLPH METCALF [facility] ERT [id number] [facility] 2023-11-14 14:32:00 2023-11-14 16:58:00 Emergency Adolph Metcalf C [facility] [id number] [id number] [id number] [id number] [facility] 2023-01-07 00:00:00 2023-01-07 00:00:00 Orders Only Doctor Unassigned, [place] [facility] [id number] 350.1.13.10 [id number] [facility] 2022-11-12 07:15:00 2022-11-12 08:23:00 Emergency X VASUT, JAMARI [facility] ERT [id number] [facility] 2022-11-12 07:15:00 2022-11-12 08:23:00 Emergency Vasut, Jamari J [facility] 1.2840.114 [id number] [id number] [id number] [facility] 2022-09-10 17:06:00 2022-09-10 20:55:00 Emergency X OBRIENBREEZY [facility] ERT [id number] [facility] 2022-09-10 17:06:00 2022-09-10 20:55:00 Emergency Breezy Obrien S [facility] [id number] [id number] [id number] [id number] [facility] Results Test Description Test Time Test Comments Results Result Co mments Source [facility] WITH [id number] 00:28:45* Test Item Value Reference Range Interpretation Comme nts WBC (test code = 6690-2) 11.89 See_Comment H [Automated messa ge] The system which generated this result transmitted reference range: 4.30 - 11.10 10*3/?L. The reference range was not used to interpret this result as normal/abnormal. RBC (test code = 789-8) 5.30 See_Comment H [Automated messa ge] The system which generated this result transmitted reference range: 3.93 - 5.25 10*6/?L. The reference range was not used to interpret this result as normal/abnormal. HGB (test code = 718-7) 14.1 g/dL 11.6-15.0 HCT (test code = 4544-3) 42.0 % 35.7-45.2 MCV (test code = 787-2) 79.2 fL 80.6-95.5 L MCH (test code = 785-6) 26.6 pg 25.9-32.8 MCHC (test code = 786-4) 33.6 g/dL 31.6-35.1 RDW-SD (test code = 44090-3) 41.6 fL 39.0-49.9 RDW-CV (test code = 788-0) 14.8 % 12.0-15.5 PLT (test code = 777-3) 207 See_Comment [Automated messa ge] The system which generated this result transmitted reference range: 166 - 358 10*3/?L. The reference range was not used to interpret this result as normal/abnormal. MPV (test code = 89302-1) 11.0 fL 9.5-12.9 NRBC/100 WBC (test code = 7909883429) 0.0 See_Comment [Automated me ssage] The system which generated this result transmitted reference range: 0.0 - 10.0 /100 WBCs. The reference range was not used to interpret this result as normal/abnormal. NRBC x10^3 (test code = 9626912667) See_Comment [Automated messa ge] The system which generated this result transmitted reference range: 10*3/?L. The reference range was not used to interpret this result as normal/abnormal. GRAN MAT (NEUT) % (test code = 770-8) 51.0 % IMM GRAN % (test code = 8660511271) 0.40 % LYMPH % (test code = 736-9) 40.3 % MONO % (test code = 5905-5) 6.7 % EOS % (test code = 713-8) 1.3 % BASO % (test code = 706-2) 0.3 % GRAN MAT x10^3(ANC) (test code = 3202991673) 6.05 10*3/uL 1.88-7.09 IMM GRAN x10^3 (test code = 2708078943) 0.05 10*3/uL 0.00-0.06 LYMPH x10^3 (test code = 731-0) 4.79 10*3/uL 1.32-3.29 H MONO x10^3 (test code = 742-7) 0.80 10*3/uL 0.33-0.92 EOS x10^3 (test code = 711-2) 0.16 10*3/uL 0.03-0.39 BASO x10^3 (test code = 704-7) 0.04 10*3/uL 0.01-0.07 REACT LYMPHS (test code = 2436934855) Rare Lab Interpretation (test code = 93241-6) Abnormal [facility] Notes Date/Time Note Provider Source 2023-11-15 15:30:21 Patient dc home. Follow up with pcp. Verbalized understanding. Signed paper work. Laurie Clay RN [facility] 2023-11-15 12:06:47 Patient states "I puke yesterday at work once and I feel nauseous." Javier Sullivan RN [facility] 2023-11-15 11:56:00 [facility] Emergency Department Note Patient Name: Ceci Jacobs Date of : 2005 18 year old female Treatment [facility] Primary Care Physician: Adrian Albarran Patient Escorted by: Family [5] Mode of Arrival: Personal means [1] EMS Treatment Prior to ED Arrival: Travel and Exposure Screening: Symptoms Does patient have any of these symptoms?: (not recorded) Exposure Screening Has patient had contact with someone with a communicable disease in the last month?: (not recorded) Diseases exposed to:: (not recorded) Is Patient ?: (not recorded) Exposure Date: (not recorded) Chief Complaint: Chief Complaint Patient presents with Nausea History of Present Illness: 18-year-old female presented for evaluation of nausea and vomiting that started yesterday. She states that she had been sick at work while at [employer]. She states that she has had intermittent nausea vomiting since then. No specific localizing abdominal pain. Afebrile. Past Medical History/Immunizations: No past medical history on file. Allergies: Allergies Allergen Reactions Tussin [Guaifenesin] Rash Past Social History: Substance & Sexual Activity No substance use or sexual activity history on file. Past Surgical History: No past surgical history on file. Review of Systems: Review of Systems Constitutional: Negative for fever. Respiratory: Negative for cough and shortness of breath. Cardiovascular: Negative for chest pain. Gastrointestinal: Positive for nausea and vomiting. Musculoskeletal: Negative for arthralgias. Skin: Negative for rash and wound. Neurological: Negative for syncope and weakness. Physical Exam: ED Triage Vitals [11/15/23 1212] Weight 117.9 kg (260 lb) Actual or estimated Height 1.676 m (5' 6") BP (!) 123/98 Pulse 92 Resp 18 Temp 37 ?C (98.6 ?F) Temp source Oral SpO2 100 % Measured on Room air Physical Exam Vitals and nursing note reviewed. Constitutional: General: She is not in acute distress. Appearance: She is well-developed. She is not diaphoretic. HENT: Head: Normocephalic and atraumatic. Right Ear: External ear normal. Left Ear: External ear normal. Nose: Nose normal. Eyes: General: No scleral icterus. Conjunctiva/sclera: Conjunctivae normal. Pupils: Pupils are equal, round, and reactive to light. Cardiovascular: Rate and Rhythm: Normal rate and regular rhythm. Heart sounds: Normal heart sounds. Pulmonary: Effort: Pulmonary effort is normal. Breath sounds: Normal breath sounds. Abdominal: General: Bowel sounds are normal. Palpations: Abdomen is soft. Tenderness: There is no abdominal tenderness. Musculoskeletal: General: Normal range of motion. Cervical back: Normal range of motion and neck supple. Skin: General: Skin is warm and dry. Neurological: Mental Status: She is alert and oriented to person, place, and time. Cranial Nerves: No cranial nerve deficit. Deep Tendon Reflexes: Reflexes are normal and symmetric. Psychiatric: Behavior: Behavior normal. Thought Content: Thought content normal. Radiology: No orders to display Lab Results: Lab Results INFLUENZA A/B RSV COVID NAAT - Normal Result Value Ref Range Influenza A NAAT Negative Negative Influenza B NAAT Negative Negative RSV by PCR Negative Negative SARS-CoV-2 NAAT Negative Negative EKG: If EKG completed, see Procedure Note. Orders and Treatments: Orders Placed This Encounter Procedures Influenza A B RSV COVID NAAT Lab Only COVID Interpretation Orders Placed This Encounter Medications ondansetron (ZOFRAN-ODT) disintegrating tablet 8 mg ondansetron 4 mg disintegrating tablet First Provider Eval: ED Events None ED COURSE Diagnosis/Impression as of 11/15/23 1443 Nausea and vomiting, unspecified vomiting type Procedures: Procedures MDM: Medical Decision Making 18-year-old female with intermittent nausea vomiting. No abdominal pain. Exam benign. Symptoms improved with Zofran ODT. Will treat symptomatically with expectant management. Viral testing negative. Return precautions given if symptoms worsen as documented in the discharge instructions. Problems Addressed: Nausea and vomiting, unspecified vomiting type: acute illness or injury Amount and/or Complexity of Data Reviewed Labs: ordered. Risk Prescription drug management. Flowsheet Documentation: Scoring Tools: No data recorded Disposition/Condition: ED Disposition ED Disposition Disch - Home Condition Stable Comment -- Discharge Medications: Current Discharge Medication List CONTINUE these medications which have CHANGED Details ondansetron 4 mg disintegrating tablet Take 1 tablet by mouth every 8 (eight) hours as needed for Nausea and Vomiting (N/V). Qty: 20 tablet, Refills: 0 Associated Diagnoses: Nausea and vomiting, unspecified vomiting type; Gastroenteritis CONTINUE these medications which have NOT CHANGED Details dicyclomine 20 mg tablet Take 1 tablet by mouth 4 (four) times daily as needed for Abdominal pain. Qty: 20 tablet, Refills: 0 Associated Diagnoses: Nausea and vomiting, unspecified vomiting type; Gastroenteritis proMETHazine 25 mg tablet Take 1 tablet by mouth every 6 (six) hours as needed for N/V unresponsive to Ondansetron. Qty: 20 tablet, Refills: 0 Associated Diagnoses: Nausea and vomiting, unspecified vomiting type; Gastroenteritis Follow-up: Electronically signed by: Timothy Rodriguez DO 11/15/23 1444 [facility] 2023-11-14 16:47:10 [facility], does not appear to be in the lob or outside. Charisma Caicedo RN [facility] 2023-11-14 16:23:29 RN [facility] pt [facility], no answer. [facility] 2023-11-14 14:31:03 Vomited once at work. AT Laurence Sutherland RN [facility] 2022-11-12 08:10:00 Formatting of this n ote might be different from the original. Written/verbal d/c instructions, out of ER in no distress AT Charisma White RN [facility] 2022-11-12 07:11:46 Formatting of this n ote might be different from the original. Patient states: "Yesterday around lunch time I started having a sore throat and a headache. I tried to eat my kolache this morning and it just hurts so bad. Every time I talk it hurts" Pmhx: none Mabel Cha RN [facility] 2022-11-12 07:08:00 Formatting of this n ote is different from the original. 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 female with sore throat since yesterday, worse this morning prompting ED [...] Right Ear: Tympanic membrane and ear canal normal. Left Ear: Tympanic membrane and ear canal normal. Mouth/Throat: Mouth: Mucous membranes are moist. Pharynx: Posterior oropharyngeal erythema present. No oropharyngeal exudate. Eyes: Pupils: Pupils are equal, round, and reactive to light. Cardiovascular: Rate and Rhythm: Tachycardia present. Pulmonary: Effort: Pulmonary effort is normal. Breath sounds: Normal breath sounds. Skin: General: Skin is warm. Capillary Refill: Capillary refill takes less than 2 seconds. Neurological: General: No focal deficit [...] have NOT CHANGED DICYCLOMINE 20 MG TABLET Take 1 tablet by mouth 4 (four) times daily as needed for Abdominal pain. ONDANSETRON 4 MG DISINTEGRATING TABLET Take 1 tablet by mouth every 8 (eight) hours as needed for Nausea and Vomiting (N/V). PROMETHAZINE 25 MG TABLET Take 1 tablet by mouth every 6 (six) hours as needed for N/V unresponsive to Ondansetron. START taking Modified Medications as Prescribed No medications on file STOP taking these medications No medications on file Follow-up: PCP Electronically signed by: Jamari Pa MD 11/12/22 0759 T [facility]
== END 2023-11-28 12:26 | disposition home or self-care (01) ==
LOC: ER 09:54
DX: R11.2 Nausea with vomiting, unspecified (principal); N39.0 Urinary tract infection, site not specified
CPT/HCPCS: 85025; 81001; 36415; 81025; 83690; 80053; J2405; J7030; J0696

== ENCOUNTER 2023-12-07 20:56 | Emergency (ER) | payer OTHER ==
--- OUTSIDE RECORDS SUMMARY | 2023-12-07 20:59 | XMS REPORT | Continuity of Care Document ---
Author Name Unknown Address [address] [facility] [address] [place] [address] [facility] thconnect Address 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 Role Phone ALBARRANJOSEFA YUNGADRIAN A Primary Care Physician Unavailab TIMOTHY Abdul Attending Clinician Unavailable TIMOTHY RODRIGUEZ Attending Clinician Unavailable Timothy Rodriguez DO Attending Clinician [phone] ADOLPH METCALF Attending Clinician UnavailAdolph De La Garza MD Attending Clinician [phone] Doctor Unassigned, [place] Attending Clinician U navailable JAMARI PA Attending Clinician Unavailable Jamari Pa MD Attending Clinician [phone] BREEZY OBRIEN Attending Clinician Unavailable Breezy Kuo Attending Clinician [phone] Payers Payer Name Policy Type Policy Number Effective Date Expirati on Date Source [facility] [id number] 2023 00:00:00 Allergies, Adverse Reactions, Alerts Allergy Name Allergy Type Status Severity Reaction(s) Onset Date Inactive Date Treating Clinician Comments Source Guaifene sin Propensi ty to adverse reaction s Active Rash 09-10 00:00: 00 [facility] GUAIFENE SIN DRUG INGREDI Active Rash 09-10 00:00: 00 [facility] NO KNOWN ALLERGIE S Drug Class Active [facility] Social History Social Habit Start Date Stop Date Quantity Comments Source Gender identity [facility] 2005 [facility]00 2005 00:00:00 [facility] Smoking Status Start Date Stop Date Source Tobacco smoking consumption unknown [facility] Medications Ordered Medication Name Filled Medication Name Start Date Stop Date Current Medication? Ordering Clinician Indication Dosage Frequency Signature (SIG) Comments Components Source ondansetron (ZOFRAN-ODT ) disintegrat ing tablet 8 mg 11-14 18:15: 00 11-14 18:00 :00 No 8mg 8 mg, Oral, ONCE, 1 dose, On Tue11/15/23 at 1315, Routine [facility] ondansetron 4 mg disintegrat ing tablet 11-14 00:00: 00 Yes [id number] 4mg Take 1 tablet by mouth every 8 (eight) hours as needed for Nausea and Vomiting (N/V). [facility] dexamethaso ne sod phos PF injection 8 mg 11-12 13:15: 00 11-12 13:11 :00 No 8mg 8 mg, Oral, ONCE, 1 dose, On Tue11/12/22 at 0815, 1 mL [facility] acetaminoph en (TYLENOL) tablet 1,000 mg 11-12 12:45: 00 11-12 12:52 :00 No 1000mg 1,000 mg, Oral, ONCE, 1 dose, On Tue11/12/22 at 0745, DEVIN [facility] ondansetron 4 mg disintegrat ing tablet 11-12 00:00: 00 11-14 00:00 :00 No [id number] 4mg Take 1 tablet by mouth every 12 (twelve) hours as needed for Nausea and Vomiting (N/V). [facility] amoxicillin -pot clavulanate 500 mg (AUGMENTIN) 500-125 mg tablet 2023-0 8-04 00:00: 00 11-23 04:59 :00 No [id number] 500mg Take 1 tablet by mouth in the morning and 1 tablet at noon and 1 tablet in the evening. Do all this for 10 days. [facility] acetaminoph en-codeine 300-30 mg tablet 804 00:00: 00 11-20 04:59 :00 No [id number] 1{tbl} Take 1 tablet by mouth every 6 (six) hours as needed for Pain (scale 7-10) for up to 7 days. Indication s: acute pain [facility] predniSONE 20 mg tablet 11-12 00:00: 00 11-16 04:59 :00 No [id number] 20mg Take 1 tablet by mouth in the morning and 1 tablet in the evening. Do all this for 3 days. [facility] dicyclomine (BENTYL) tablet 20 mg 09-11 02:00: 00 09-11 01:05 :00 No 20mg 20 mg, Oral, ONCE, 1 dose, On Tue09/10/22 at 2100, Routine [facility] proMETHazin e (PHENERGAN) 25 mg in NaCl 0.9% (NS) 50 mL IV piggyback 09-11 01:00: 00 09-11 01:06 :00 No 25mg 25 mg, IV Piggyback, ONCE, 1 dose, On Tue09/10/22 at 2000, DEVIN [facility] NaCl 0.9% (NS) bolus infusion 1,000 mL 09-10 23:45: 00 09-11 00:57 :00 No 1000mL at 999 mL/hr, 1,000 mL, IV Infusion, ONCE, 1 dose, On Tue09/10/22 at 1845, STAT [facility] ondansetron (ZOFRAN (PF)) injection 4 mg 09-10 22:45: 00 09-10 23:23 :00 No 4mg 4 mg, Slow IV Push, ONCE, 1 dose, On Tue09/10/22 at 1745, DEVIN [facility] dicyclomine 20 mg tablet 09-10 00:00: 00 Yes [id number] 20mg Take 1 tablet by mouth 4 (four) times daily as needed for Abdominal pain. [facility] proMETHazin e 25 mg tablet 09-10 00:00: 00 Yes [id number] 25mg Take 1 tablet by mouth every 6 (six) hours as needed for N/V unresponsi ve to Ondansetro n. [facility] ondansetron 4 mg disintegrat ing tablet 09-10 00:00: 00 11-14 00:00 :00 No [id number] 4mg Take 1 tablet by mouth every 8 (eight) hours as needed for Nausea and Vomiting (N/V). [facility] Vital Signs Vital Name Observation Time Observation Value Comments S ource Systolic blood pressure 2023-11-15 17:12:00 123 mm[Hg] [facility] Diastolic blood pressure 2023-11-15 17:12:00 98 mm[Hg] [facility] Heart rate 2023-11-15 17:12:00 92 /min [facility] Body temperature 2023-11-15 17:12:00 37 Nessa [facility] Respiratory rate 2023-11-15 17:12:00 18 /min [facility] Body height 2023-11-15 17:12:00 167.6 cm [facility] Body weight 2023-11-15 17:12:00 117.935 kg [facility] BMI 2023-11-15 17:12:00 41.97 kg/m2 [facility] Oxygen saturation in Arterial blood by Pulse oximetry 2023-11-15 17:12:00 100 /min [facility] BMI 2023-11-14 19:31:00 43.27 kg/m2 [facility] Oxygen saturation in Arterial blood by Pulse oximetry 2023-11-14 19:31:00 99 /min [facility] Systolic blood pressure 2023-11-14 19:31:00 123 mm[Hg] [facility] Diastolic blood pressure 2023-11-14 19:31:00 85 mm[Hg] [facility] Heart rate 2023-11-14 19:31:00 102 /min [facility] Body temperature 2023-11-14 19:31:00 37.28 Nessa [facility] Respiratory rate 2023-11-14 19:31:00 18 /min [facility] Body height 2023-11-14 19:31:00 165.1 cm [facility] Body weight 2023-11-14 19:31:00 117.935 kg [facility] Systolic blood pressure 2022-11-12 12:12:00 127 mm[Hg] [facility] Diastolic blood pressure 2022-11-12 12:12:00 94 mm[Hg] [facility] Heart rate 2022-11-12 12:12:00 108 /min [facility] Body temperature 2022-11-12 12:12:00 37.17 Nessa [facility] Respiratory rate 2022-11-12 12:12:00 16 /min [facility] Body height 2022-11-12 12:12:00 165.1 cm [facility] Body weight 2022-11-12 12:12:00 95.255 kg [facility] BMI 2022-11-12 12:12:00 34.95 kg/m2 [facility] Oxygen saturation in Arterial blood by Pulse oximetry 2022-11-12 12:12:00 98 /min [facility] Oxygen saturation in Arterial blood by Pulse oximetry 2022-09-11 01:50:00 99 /min [facility] Systolic blood pressure 2022-09-11 01:50:00 107 mm[Hg] [facility] Diastolic blood pressure 2022-09-11 01:50:00 67 mm[Hg] [facility] Heart rate 2022-09-11 01:50:00 98 /min Un[facility] Respiratory rate 2022-09-11 01:50:00 16 /min [facility] Body temperature 2022-09-10 22:04:00 37.39 Nessa [facility] Body height 2022-09-10 22:04:00 165.1 cm [facility] Body weight 2022-09-10 22:04:00 100.245 kg [facility] BMI 2022-09-10 22:04:00 36.78 kg/m2 [facility] Procedures Procedure Date / Time Performed Performing Clinicia n Source INFLUENZA A/B RSV COVID NAAT 2023-11-15 17:59:00 Timothy Rodriguez [facility] REFERRAL- REQUEST/RESPONSE 2023-01-07 05:01:00 Doctor Unassigned, [place] [facility] ASSIGNMENT OF BENEFITS 2022-11-12 12:57:02 Docto r Unassigned, [place] [facility] RAPID STREP SCREEN FOR GROUP A 2022-11-12 12:19:00 Jamari Pa [facility] CONSENT/REFUSAL FOR DIAGNOSIS AND TREATMENT 2022-11-12 12:08:08 Doctor Unassigned, [place] [facility] POCT TEST 2022-09-11 00:57:00 Breeyz Obrien [facility] COMP. METABOLIC PANEL ([id number]) 2022-09-11 00:47:00 Breezy Obrien [facility] URINALYSIS 2022-09-11 00:47:00 [facility] CBC WITH DIFF 2022-09-10 23:22:00 Breezy Obrien [facility] NOTICE OF PRIVACY PRACTICES 2022-09-10 22:08:17 Doctor Unassigned, [place] [facility] CONSENT/REFUSAL FOR DIAGNOSIS AND TREATMENT 2022-09-10 22:01:22 Doctor Unassigned, [place] [facility] Encounters Start Date/Time End Date/Time Encounter Type Admission Type Attending Clinicians Care Facility Care Department Encounter ID Source 2023-11-15 12:13:00 2023-11-15 15:32:00 Emergency X TIMOTHY RODRIGUEZ PHILLIP [facility] ERT [id number] [facility] 2023-11-15 12:13:00 2023-11-15 15:32:00 Emergency Rodriguez, Timothy [facility] 1.2840.114 350.1.13.10 [id number] [id number] [facility] 2023-11-14 14:32:00 2023-11-14 16:58:00 Emergency X ADOLPH METCALF [facility] ERT [id number] [facility] 2023-11-14 14:32:00 2023-11-14 16:58:00 Emergency Adolph Metcalf C [facility] 1.2840.114 [id number] [id number] [id number] [facility] 2023-01-07 00:00:00 2023-01-07 00:00:00 Orders Only Doctor Unassigned, [place] [facility] 1.2840.114 350.1.13.10 4.2.7.2.686 [id number] [facility] 2022-11-12 07:15:00 2022-11-12 08:23:00 Emergency X VASUT, JAMARI [facility] ERT [id number] [facility] 2022-11-12 07:15:00 2022-11-12 08:23:00 Emergency Vasut, Jamari J [facility] 1.2840.114 350.1.13.10 [id number] [id number] [facility] 2022-09-10 17:06:00 2022-09-10 20:55:00 Emergency X OBRIENBREEZY [facility] ERT [id number] [facility] 2022-09-10 17:06:00 2022-09-10 20:55:00 Emergency Breezy Obrien S [facility] 1.2840.114 [id number] [id number] [id number] [facility] Results Test Description Test Time Test Comments Results Result Co mments Source [facility] WITH [id number] 00:28:45* Test Item Value Reference Range Interpretation [...] 33.6 g/dL 31.6-35.1 RDW-SD (test code = 41553-8) 41.6 fL 39.0-49.9 RDW-CV (test code = 788-0) 14.8 % 12.0-15.5 PLT (test code = 777-3) 207 See_Comment [Automated messa ge] The system which generated this result transmitted reference range: 166 - 358 10*3/?L. The reference range was not used to interpret this result as normal/abnormal. MPV (test code = 75488-6) 11.0 fL 9.5-12.9 NRBC/100 WBC (test code = 2957635266) 0.0 See_Comment [Automated me ssage] The system which generated this result transmitted reference range: 0.0 - 10.0 /100 WBCs. The reference range was not used to interpret this result as normal/abnormal. NRBC x10^3 (test code = 9224805723) See_Comment [Automated messa ge] The system which generated this result transmitted reference range: 10*3/?L. The reference range was not used to interpret this result as normal/abnormal. GRAN MAT (NEUT) % (test code = 770-8) 51.0 % IMM GRAN % (test code = 0089029764) 0.40 % LYMPH % (test code = 736-9) 40.3 % MONO % (test code = 5905-5) 6.7 % EOS % (test code = 713-8) 1.3 % BASO % (test code = 706-2) 0.3 % GRAN MAT x10^3(ANC) (test code = 9690314556) 6.05 10*3/uL 1.88-7.09 IMM GRAN x10^3 (test code = 9663882510) 0.05 10*3/uL 0.00-0.06 LYMPH x10^3 (test code = 731-0) 4.79 10*3/uL 1.32-3.29 H MONO x10^3 (test code = 742-7) 0.80 10*3/uL 0.33-0.92 EOS x10^3 (test code = 711-2) 0.16 10*3/uL 0.03-0.39 BASO x10^3 (test code = 704-7) 0.04 10*3/uL 0.01-0.07 REACT LYMPHS (test code = 1969510965) Rare Lab Interpretation (test code = 42664-7) Abnormal [facility] Notes Date/Time Note Provider Source 2023-11-15 15:30:21 Patient dc home. Follow up with pcp. Verbalized understanding. Signed paper work. Laurie Clay RN [facility] 2023-11-15 12:06:47 Patient states "I puke yesterday at work once and I feel nauseous." Javier Sullivan RN [facility] 2023-11-15 11:56:00 [facility] Emergency Department Note Patient Name: Ceci Jacobs Date of : 2005 18 year old female Treatment [facility] Primary Care Physician: Adrian Albarran Patient Escorted [...] signed by: Timothy Rodriguez DO 11/15/23 1444 [facility] 2023-11-14 16:47:10 Patient called in [facility], does not appear to be in the lob or outside. Charisma Caicedo RN [facility] 2023-11-14 16:23:29 RN called pt in [facility], no answer. [facility] 2023-11-14 14:31:03 Vomited once at work. AT Laurence Sutherland RN [facility] 2022-11-12 08:10:00 Formatting of this n ote might be different from the original. Written/verbal d/c instructions, out of ER in no distress AT Charisma White RN [facility] 2022-11-12 07:11:46 Formatting of this n ote might be different from the original. Patient states: "Yesterday around lunch time I started having a sore throat and a headache. I tried to eat my kolache this morning and it just hurts so bad. Every time I talk it hurts" Pmhx: none Mabel Cha RN [facility] - Health 2022-11-12 07:08:00 Formatting of this n ote is different from the original. [facility] Emergency Department Note Patient Name: Ceci Jacobs Date of : 2005 17 year old female Treatment Room: [place] [address] Primary Care Physician: Adrian Albarran Patient Escorted by: Friend [6] Mode of Arrival: Personal means [1] EMS Treatment Prior to ED Arrival: [employer] treatment: Medication (comment) [employer] treatment comments: ibuprofen at 0300 Travel and [...] by: Jamari Pa MD 11/12/22 0759 T [facility]
--- NOTE | 2023-12-07 22:03 | RAD REPORT ---
EXAM DESCRIPTION: RAD - Chest Pa And Lat (2 Views) - 12/07/2023 9:41 pm CLINICAL HISTORY: Chest pain;Congestion;Cough Chest pain. COMPARISON: Abdomen 1 View (KUB) dated 12/14/2016; CHEST PA AND LAT 2 VIEW dated 04/09/2012; CHEST PA AND LAT 2 VIEW dated 2005 FINDINGS: The lungs are clear. The heart is normal in size. No displaced fractures. IMPRESSION: No acute or concerning finding suspected.
[2023-12-07 22:41] LABS: Absolute Eosinophils 0.2 K/uL (0-0.5); Absolute Lymphocytes (CBC) 2.4 K/uL (0.7-4.9); Absolute Monocytes 0.8 K/uL (0.1-1.3); Absolute Neutrophil 8.7 K/uL (1.8-8.0); Basophils % 0.1 % (0-1.3); Eosinophils % 1.3 % (0-4.4); Hematocrit 38.1 % (36.0-45.0); Hemoglobin 12.1 g/dL (12.0-15.0); Lymphocytes % 20.2 % (15.3-44.8); MCH 24.5 pg (27.0-35.0); MCHC 31.7 g/dL (32.0-36.0); MCV 77.4 fL (80-100); MPV 9.5 fL (7.6-11.3); Monocytes % 6.4 % (3.3-12.3); Platelets 256 thou/uL (152-406); RBC Red Blood Cell Count 4.92 M/uL (3.86-4.86)
[2023-12-07 22:50] LABS: SARS-CoV-2 Antigen CONTROL BLUE LINE VIS/BG OK; SARS-CoV-2 Antigen Rapid Res Negative (Negative)
[2023-12-07 22:59] LABS: Anion Gap 7.8 mEq/L (5.0-15.0); BUN Blood Urea Nitrogen 9 mg/dL (7-18); Bicarbonate 28 mEq/L (21-32); Glomerular Filtration Rate 102 ml/min (=/>90); Glucose Level 95 mg/dL (74-106); Magnesium 1.8 mg/dL (1.6-2.4); NT PRO-BNP 55 pg/mL (<125); Potassium 3.8 mEq/L (3.5-5.1); Sodium Level 136 mEq/L (136-145)
[2023-12-07 23:00] LABS: Troponin High Sensitivity < 3.0 pg/mL (<58.9)
[2023-12-07] MEDS ORDERED: KETOROLAC 30 MG/ML INJ ONE (23:23)
[2023-12-07] MEDS ORDERED: NA CHLORIDE 0.9% 1,000 ML ONE (23:23)
--- NOTE | 2023-12-08 00:21 | ER ---
Nurse's Notes [facility] Name: Saran Ziegler Age: 18 yrs Sex: Female : 2005 Arrival Date: 12/07/2023 Time: 20:56 Bed 2 Private MD: Diagnosis: Acute upper respiratory infection, unspecified;Chest pain, unspecified Presentation: 12/06 21:03 Chief complaint: Patient states: had chest pain today at work and ongoing cough for kj2 last two days. Coronavirus screen: At this time, the client does not indicate any symptoms associated with coronavirus-19. Ebola Screen: No symptoms or risks identified at this time. Initial Sepsis Screen: Does the patient meet any 2 criteria? No. Patient's initial sepsis screen is negative. Does the patient have a suspected source of infection? No. Patient's initial sepsis screen is negative. Risk Assessment: Do you want to hurt yourself or someone else? Patient reports no desire to harm self or others. Onset of symptoms was December 03, 2023. 21:03 Method Of Arrival: Ambulatory kj2 21:10 Acuity: BRUCE 3 kj2 Triage Assessment: 21:08 General: Appears in no apparent distress. Behavior is calm, cooperative. Pain: kj2 Complains of pain in chest Pain currently is 4 out of 10 on a pain scale. Cardiovascular: Patient's skin is warm and dry. Cardiovascular: Chest pain began for four days. Respiratory: Airway is patent Respiratory effort is unlabored. 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 - Infectious Disease History:: Denies. - Social history:: Smoking status: Patient/guardian denies using tobacco, Stopped _ months ago 2. Screenin:21 [facility] ED Fall Risk Assessment (Adult) History of falling in the last 3 months, al5 including since admission No falls in past 3 months (0 pts) Confusion or Disorientation No (0 pts) Intoxicated or Sedated No (0 pts) Impaired Gait No (0 pts) Mobility Assist Device Used No (0 pt) Altered Elimination No (0 pt) Score/Fall Risk Level 0 - 2 = Low Risk Oriented to surroundings, Maintained a safe environment, Hourly rounding (assess needs \T\ fall precautionary measures) done. Abuse screen: Denies threats or abuse. Denies injuries from another. Nutritional screening: No deficits noted. Tuberculosis screening: No symptoms or risk factors identified. Assessment: 22:21 General: Appears in no apparent distress. Behavior is calm, cooperative. Pain: al5 Complains of pain in chest Pain does not radiate. Pain began 2 wks ago. Neuro: Level of Consciousness is awake, alert, obeys commands, Oriented to person, place, time, situation. Cardiovascular: Capillary refill < 3 seconds Patient's skin is warm and dry. Cardiovascular: Rhythm is sinus rhythm. Respiratory: Airway is patent Respiratory effort is even, unlabored, Respiratory pattern is regular, symmetrical. GI: No signs and/or symptoms were reported involving the gastrointestinal system. : No signs and/or symptoms were reported regarding the genitourinary system. EENT: No signs and/or symptoms were reported regarding the EENT system. Derm: Skin is intact, Skin is pink, warm \T\ dry. normal. Musculoskeletal: No signs and/or symptoms reported regarding the musculoskeletal system. Vital Signs: 21:03 BP 139 / 91; Pulse 109; Resp 18; Temp 97.7; Pulse Ox 97% on R/A; Weight 120.2 kg; kj2 Height 5 ft. 6 in. ; Pain 07/19; 12/07 01:00 BP 114 / 59; Pulse 80; Resp 18; Pulse Ox 98% ; br2 12/06 21:03 Body Mass Index 42.77 (120.20 kg, 167.64 cm) [facility] 12/06 21:03 Pain Scale: Adult [facility] ED Course: 12/06 20:58 Patient arrived in ED. jj6 21:02 Tori Rushing PA-C is PHCP. sb4 21:02 Benoit Gonzalez MD is Attending Physician. sb4 21:11 Triage completed. kj2 21:11 Arm band placed on right wrist. Patient placed in waiting room. EKG completed in 2 triage. Results shown to MD. 21:11 EKG done, by ED staff, reviewed by Tori Rushing PA-C. 2 21:42 Chest Pa And Lat (2 Views) XRAY In Process Unspecified. EDMS 22:01 Lilliam Welch, RN is Primary Nurse. al5 22:20 Flu Sent. al5 22:20 SARS RAPID Sent. al5 22:20 Basic Metabolic Panel Sent. al5 22:20 CBC with Diff Sent. al5 22:20 Magnesium Sent. al5 22:20 NT PRO-BNP Sent. al5 22:20 Troponin HS Sent. al5 22:21 Patient has correct armband on for positive identification. Bed in low position. Call al5 light in reach. Side rails up X 1. Provided Education on: processes and procedures. Client placed on continuous cardiac and pulse oximetry monitoring. NIBP monitoring applied. child monitor on. 22:22 O2 via room air. al5 22:22 No provider procedures requiring assistance completed. Inserted saline lock: 20 gauge al5 in left antecubital area, using aseptic technique. 12/07 01:34 IV discontinued, intact, No redness/swelling at site. Pressure dressing applied. br2 Administered Medications: 12/06 23:40 Drug: NS 0.9% IV 1000 ml IV at 1 bolus Per protocol; 1000 mL bolus Route: IV; Rate: 1 al5 bolus; Site: right antecubital; 12/07 01:35 Follow up: IV Status: Completed infusion; IV Intake: 1000ml br2 12/06 23:40 Drug: Ketorolac IVP 30 mg IVP once Route: IVP; Site: right antecubital; al5 12/07 01:22 Follow up: Response: No adverse reaction br2 Medication: 12/06 22:21 VIS not applicable for this client. al5 Intake: 12/07 01:35 IV: 1000ml; Total: 1000ml. br2 Outcome: 00:21 Discharge ordered by . sb4 01:34 Discharged to home ambulatory, with significant other, br2 01:34 Condition: stable 01:34 Discharge instructions given to patient, Instructed on discharge instructions, follow up and referral plans. medication usage, Demonstrated understanding of instructions, follow-up care, Prescriptions given X 3, 01:40 Patient left the ED. br2 Signatures: Dispatcher [employer] EDDC EricaShantal jj6 Tori Rushing, PATessaC PA-C sb4 Lilliam Welch, SHANNAN CAMPBELL al5 Marlena Rhoades RN RN br2 Carol Brothers, RN RN kj2
--- NOTE | 2023-12-08 00:21 | EDPHYS ---
Physician Documentation [facility] Name: Saran Ziegler Age: 18 yrs Sex: Female : 2005 Arrival Date: 12/07/2023 Time: 20:56 Bed 2 Private MD: ED Physician Benoit Gonzalez HPI: 12/06 21:25 This 18 yrs old Female presents to ER via Ambulatory with complaints of Chest Pain, sb4 Cough. 21:25 URI symptoms and intermittent chest pain x 2 weeks. coworker has pneumonia. denies any sb4 known fever or chills. reports mild sob. MOONER: 22:23 unknown al5 Historical: - Allergies: 21:07 jalapenos; kj2 21:07 ROBITUSSIN; kj2 21:07 Strawberries; kj2 - PMHx: 21:07 Depression; Tachycardia; kj2 - Immunization history:: Adult Immunizations up to date, . - Infectious Disease History:: Denies. - Social history:: Smoking status: Patient/guardian denies using tobacco, Stopped _ months ago 2. ROS: 12/07 01:30 Constitutional: Negative for fever, chills, and weight loss, sb4 Cardiovascular: Positive for chest pain, Respiratory: Positive for cough, "sounds productive", All other systems are negative, Exam: 01:30 Constitutional: This is a well developed, well nourished patient who is awake, alert, sb4 and in no acute distress. Head/Face: Normocephalic, atraumatic. Eyes: Extra-ocular motions intact. Periorbital areas with no swelling, redness, or edema. ENT: Mucous membranes moist. Cardiovascular: Regular rate and rhythm with a normal S1 and S2. Respiratory: Lungs have equal breath sounds bilaterally, clear to auscultation and percussion. No rales, rhonchi or wheezes noted. No increased work of breathing, no retractions or nasal flaring. Abdomen/GI: Soft, non-tender, no distension. Skin: Warm, dry with normal turgor. Normal color with no rashes, no lesions, and no evidence of cellulitis. MS/ Extremity: Pulses equal, no cyanosis. Neurovascular intact. Full, normal range of motion. Neuro: Awake and alert, GCS 15, oriented to person, place, time, and situation. Motor strength 5/5 in all extremities. Sensory grossly intact. Vital Signs: 12/06 21:03 BP 139 / 91; Pulse 109; Resp 18; Temp 97.7; Pulse Ox 97% on R/A; Weight 120.2 kg; kj2 Height 5 ft. 6 in. ; Pain 4/10; 12/07 01:00 BP 114 / 59; Pulse 80; Resp 18; Pulse Ox 98% ; br2 12/06 21:03 Body Mass Index 42.77 (120.20 kg, 167.64 cm) kj2 12/06 21:03 Pain Scale: Adult kj2 MDM: 12/06 21:03 Patient medically screened. sb4 12/07 01:30 Data reviewed: vital signs, nurses notes, lab test result(s), EKG, radiologic studies, sb4 and as a result, I will discharge patient. Counseling: I had a detailed discussion with the patient and/or guardian regarding the historical points, exam findings, and any diagnostic results supporting the discharge/admit diagnosis, lab results, radiology results, to return to the emergency department if symptoms worsen or persist or if there are any questions or concerns that arise at home. 12/06 21:18 Order name: Basic Metabolic Panel; Complete Time: 23:00 sb4 12/06 21:18 Order name: CBC with Diff; Complete Time: 22:45 sb4 12/06 21:18 Order name: Magnesium; Complete Time: 23:00 sb4 12/06 21:18 Order name: NT PRO-BNP; Complete Time: 23:00 sb4 12/06 21:18 Order name: Troponin HS; Complete Time: 23:00 sb4 12/06 21:26 Order name: SARS RAPID; Complete Time: 22:59 sb4 12/06 21:26 Order name: Flu; Complete Time: 22:59 sb4 12/06 21:18 Order name: Chest Pa And Lat (2 Views) XRAY sb4 12/06 21:18 Order name: EKG; Complete Time: 21:18 sb4 12/06 21:18 Order name: Cardiac monitoring; Complete Time: 22:20 sb4 12/06 21:18 Order name: EKG - Nurse/Tech; Complete Time: 22:03 sb4 12/06 21:18 Order name: IV Saline Lock; Complete Time: 22:20 sb4 12/06 21:18 Order name: Labs collected and sent; Complete Time: 22:20 sb4 12/06 21:18 Order name: O2 Per Protocol; Complete Time: 22:20 sb4 12/06 21:18 Order name: O2 Sat Monitoring; Complete Time: 22:20 sb4 EC/28 21:21 Rate is 105 beats/min. Rhythm is regular, Sinus tachycardia. IA interval is normal at sb4 136 msec. QRS interval is normal at 80 msec. QT interval is normal at 330 msec. No Q waves. T waves are Normal. No ST changes noted. Clinical impression: Sinus tachycardia and No evidence of ischemia. Interpreted by me. Reviewed by me. Administered Medications: 23:40 Drug: NS 0.9% IV 1000 ml IV at 1 bolus Per protocol; 1000 mL bolus Route: IV; Rate: 1 al5 bolus; Site: right antecubital; 12/07 01:35 Follow up: IV Status: Completed infusion; IV Intake: 1000ml br2 12/06 23:40 Drug: Ketorolac IVP 30 mg IVP once Route: IVP; Site: right antecubital; al5 12/07 01:22 Follow up: Response: No adverse reaction br2 Disposition Summary: 12/08/23 00:21 Discharge Ordered Notes: Location: Home sb4 Problem: new sb4 Symptoms: have improved sb4 Condition: Stable sb4 Diagnosis - Acute upper respiratory infection, unspecified sb4 - Chest pain, unspecified sb4 Followup: sb4 - With: Emergency Department - When: As needed - Reason: Fever > 102 F, Trouble breathing, Worsening of condition Discharge Instructions: - Discharge Summary Sheet sb4 - Upper Respiratory Infection, Adult, [id number] sb4 Forms: - Antibiotic Education sb4 - Patient Portal Instructions sb4 - Leadership Thank You Letter sb4 Prescriptions: - azithromycin 250 mg Oral tablet - take 1 dose pack ORAL route as directed on dose pack For 250 mg dose pack: take sb4 500 mg today (day 1), then 250 mg for 4 days (days 2-5); 1 Pack; Refills: 0, Product Selection Permitted - Tessalon Perles 100 mg Oral Capsule - take 1 capsule ORAL route every 8 hours As needed; 15 capsule; Refills: 0, sb4 Product Selection Permitted - Prednisone 20 mg Oral Tablet - take 1 tablet ORAL route every 12 hours for 5 days; 10 tablet; Refills: 0, sb4 Product Selection Permitted Addendum: 12/14/2023 05:00 Co-signature as Attending Physician, Benoit Gonzalez MD I agree with the assessment and c pedraza plan of care. Signatures: Dispatcher [employer] Benoit Ty MD MD cha Brown, Sophia, PATessaC PATessaC sb4 Lilliam Welch RN RN al5 Carol Brothers RN RN kj2 Marlena Rhoades RN br2
[2023-12-08 02:02] VITALS: TEMP 97.7
[2023-12-08 02:04] VITALS: BP 114/59; O2SAT 98
--- NOTE | 2023-12-09 14:44 | EKG ---
Test Date: 2023-12-07 Test Time: 21:10:24 Beauty Artist: CORNELIA MEASUREMENT RESULTS: Intervals: Rate: 105 TX: 136 QRSD: 80 QT: 330 QTc: 436 [place]: P: 65 TX: 136 QRS: 46 T: 18 INTERPRETIVE STATEMENTS: Sinus tachycardia Cannot rule out Anterior infarct, age undetermined Abnormal ECG Compared to ECG 12/14/2016 20:31:42 Myocardial infarct finding now present Sinus rhythm no longer present Electronically Signed On 12-09-23 14:40:30 CDT by [facility]
== END 2023-12-08 01:40 | disposition home or self-care (01) ==
LOC: ER 20:56
DX: J06.9 Acute upper respiratory infection, unspecified (principal); R05.9 Cough, unspecified; Z11.52 Encounter for screening for COVID-19; Z87.891 Personal history of nicotine dependence
CPT/HCPCS: 96361; 93005; 85025; 80048; 36415; 83735; 84484; 83880; 87804 ×2; 71046; 96374; 99285; 87811; J7030

== ENCOUNTER 2023-12-28 11:03 | Emergency (ER) | payer BC ==
[2023-12-28 12:18] LABS: SARS-CoV-2 Antigen CONTROL BLUE LINE VIS/BG OK; SARS-CoV-2 Antigen Rapid Res Negative (Negative)
--- NOTE | 2023-12-28 12:35 | ER ---
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 Thought I was tm6 taking ibuprofen, but really took buproprion -- took 6 tablets. Chest, back, stomach, head, and arms hurts. Coronavirus screen: Vaccine status: Patient reports receiving the 2nd dose of the covid vaccine. Ebola Screen: Patient negative for fever greater than or equal to 101.5 degrees Fahrenheit, and additional compatible Ebola Virus Disease symptoms Patient denies exposure to infectious person. Patient denies travel to an Ebola-affected area in the 21 days before illness onset. No symptoms or risks identified at this time. Initial Sepsis Screen: Does the patient meet any 2 criteria? HR > 90 bpm. Does the patient have a suspected source of infection? No. Patient's initial sepsis screen is negative. Risk Assessment: Do you want to hurt yourself or someone else? Patient reports no desire to harm self or others. Onset of symptoms was December 28, 2023. 11:20 Method Of Arrival: Ambulatory tm6 11:20 Acuity: BRUCE 4 tm6 Triage Assessment: 11:22 General: Appears in no apparent distress. Behavior is calm, cooperative. Pain: tm6 Complains of pain in face, back, abdomen, right arm, left arm, right leg and left leg Pain does not radiate. Pain currently is 6 out of 10 on a pain scale. Quality of pain is described as aching, Pain began this morning. EENT: No signs and/or symptoms were reported regarding the EENT system. Neuro: Level of Consciousness is awake, alert, obeys commands, Oriented to person, place, time, situation, Reports headache. Cardiovascular: Reports chest pain, Patient's skin is warm and dry. Respiratory: Airway is patent Respiratory effort is even, unlabored, Respiratory pattern is regular, symmetrical. GI: Abdomen is round Reports lower abdominal pain, upper abdominal pain. GI: Reports nausea. : No signs and/or symptoms were reported regarding the genitourinary system. Derm: No signs and/or symptoms reported regarding the dermatologic system. Musculoskeletal: Reports pain in back, chest, abdomen, right arm, left arm, right leg and left leg. 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 - Infectious Disease History:: Denies. - Social history:: Smoking status: Patient denies any tobacco usage or history of. - Family history:: not pertinent. Screenin:12 [facility] ED Fall Risk Assessment (Adult) History of falling in the last 3 months, tm6 including since admission No falls in past 3 months (0 pts) Confusion or Disorientation No (0 pts) Intoxicated or Sedated No (0 pts) Impaired Gait No (0 pts) Mobility Assist Device Used No (0 pt) Altered Elimination No (0 pt) Score/Fall Risk Level 0 - 2 = Low Risk Oriented to surroundings, Maintained a safe environment, Educated pt \T\ family on fall prevention, incl call for assistance when getting out of bed. Abuse screen: Denies threats or abuse. Denies injuries from another. Nutritional screening: No deficits noted. Tuberculosis screening: No symptoms or risk factors identified. Assessment: 11:30 Reassessment: see triage assessment. tm6 Vital Signs: 11:11 BP 128 / 86; Pulse 113; Resp 19; Temp 98.9(O); Pulse Ox 98% on R/A; Weight 117.93 kg; tm6 Height 5 ft. 5 in. ; Pain 6/10; 13:13 BP 116 / 58; Pulse 82; Resp 18; Temp 98.9; Pulse Ox 98% on R/A; Pain 0/10; tm6 11:11 Body Mass Index 43.27 (117.93 kg, 165.1 cm) tm6 11:11 Pain Scale: Adult tm6 13:13 Pain Scale: Adult 6 ED Course: 11:07 Patient arrived in ED. mg5 11:11 Benoit Gonzalez MD is Attending Physician. [facility] 11:22 Triage completed. tm6 11:22 Arm band placed on right wrist. tm6 11:47 Strep Sent. bc6 11:47 SARS RAPID Sent. bc6 11:47 Flu Sent. bc6 11:47 COVID swab sent to lab. Flu and/or RSV swab sent to lab. Strep swab sent to lab. bc6 12:31 Gavoita Chino, RN is Primary Nurse. 12:32 Frederick Thakkar MD is Referral Physician. [facility] 13:12 Patient has correct armband on for positive identification. Provided Education on: tm6 results. 13:12 No provider procedures requiring assistance completed. Patient did not have IV access tm6 during this emergency room visit. Administered Medications: No medications were administered Medication: 13:12 VIS not applicable for this client. tm6 Outcome: 12:35 Discharge ordered by . [facility] 13:12 Condition: stable tm6 13:14 Discharged to home ambulatory, with friend, tm6 13:14 Instructed on discharge instructions, follow up and referral plans. 13:14 Patient left the ED. tm6 Signatures: Benoit Gonzalez MD MD cha Williams, Irene, RN RN Crystal Resendez 6 Airam Huddleston mg5 Fany Chao RN RN tm6
--- NOTE | 2023-12-28 12:35 | EDPHYS ---
Physician Documentation [facility] Name: Saran Ziegler Age: 18 yrs Sex: Female : 2005 Arrival Date: 12/28/2023 Time: 11:03 Bed DX4 Private MD: ED Physician Benoit Gonzalez HPI: 12/27 12:27 This 18 yrs old Female presents to ER via Ambulatory with complaints of Flu earnest Symptoms. 12:27 The patient presents with pain that is chronic, with no known mechanism of injury. The earnest symptoms are located in the low back. BODY ACHES TOOK 600MG OF WELLBUTRIN THIS AN , 3 AM , MISTAKE. Severity of symptoms: At their worst the symptoms were mild, in the emergency department the symptoms are unchanged. Severity of symptoms: At their worst the symptoms were mild in the emergency department the symptoms are unchanged. The patient has experienced similar episodes in the past, several times. 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 - Infectious Disease History:: Denies. - Social history:: Smoking status: Patient denies any tobacco usage or history of. - Family history:: not pertinent. ROS: 12:27 Constitutional: Negative for fever, chills, and weight loss, Eyes: Negative for injury, earnest pain, redness, and discharge, ENT: Negative for injury, pain, and discharge, Neck: Negative for injury, pain, and swelling, Cardiovascular: Negative for chest pain, palpitations, and edema, Respiratory: Negative for shortness of breath, cough, wheezing, and pleuritic chest pain, Abdomen/GI: Negative for abdominal pain, nausea, vomiting, diarrhea, and constipation, Back: Negative for injury and pain, : Negative for injury, bleeding, discharge, and swelling, MS/Extremity: Negative for injury and deformity, Skin: Negative for injury, rash, and discoloration, Neuro: Negative for headache, weakness, numbness, tingling, and seizure, Psych: Negative for depression, anxiety, suicide ideation, homicidal ideation, and hallucinations, Allergy/Immunology: Negative for hives, rash, and allergies, Endocrine: Negative for neck swelling, polydipsia, polyuria, polyphagia, and marked weight changes, Hematologic/Lymphatic: Negative for swollen nodes, abnormal bleeding, and unusual bruising, Exam: 12:27 Constitutional: This is a well developed, well nourished patient who is awake, alert, earnest and in no acute distress. Head/Face: Normocephalic, atraumatic. Eyes: Pupils equal round and reactive to light, extra-ocular motions intact. Lids and lashes normal. Conjunctiva and sclera are non-icteric and not injected. Cornea within normal limits. Periorbital areas with no swelling, redness, or edema. ENT: Nares patent. No nasal discharge, no septal abnormalities noted. Tympanic membranes are normal and external auditory canals are clear. Oropharynx with no redness, swelling, or masses, exudates, or evidence of obstruction, uvula midline. Mucous membranes moist. Neck: Trachea midline, no thyromegaly or masses palpated, and no cervical lymphadenopathy. Supple, full range of motion without nuchal rigidity, or vertebral point tenderness. No Meningismus. Chest/axilla: Normal chest wall appearance and motion. Nontender with no deformity. No lesions are appreciated. Cardiovascular: Regular rate and rhythm with a normal S1 and S2. No gallops, murmurs, or rubs. Normal PMI, no JVD. No pulse deficits. Respiratory: Lungs have equal breath sounds bilaterally, clear to auscultation and percussion. No rales, rhonchi or wheezes noted. No increased work of breathing, no retractions or nasal flaring. Abdomen/GI: Soft, non-tender, with normal bowel sounds. No distension or tympany. No guarding or rebound. No evidence of tenderness throughout. Back: No spinal tenderness. No costovertebral tenderness. Full range of motion. Skin: Warm, dry with normal turgor. Normal color with no rashes, no lesions, and no evidence of cellulitis. MS/ Extremity: Pulses equal, no cyanosis. Neurovascular intact. Full, normal range of motion. Neuro: Awake and alert, GCS 15, oriented to person, place, time, and situation. Cranial nerves II-XII grossly intact. Motor strength 5/5 in all extremities. Sensory grossly intact. Cerebellar exam normal. Normal gait. Psych: Awake, alert, with orientation to person, place and time. Behavior, mood, and affect are within normal limits. Vital Signs: 11:11 BP 128 / 86; Pulse 113; Resp 19; Temp 98.9(O); Pulse Ox 98% on R/A; Weight 117.93 kg; tm6 Height 5 ft. 5 in. ; Pain 6/10; 13:13 BP 116 / 58; Pulse 82; Resp 18; Temp 98.9; Pulse Ox 98% on R/A; Pain 0/10; tm6 11:11 Body Mass Index 43.27 (117.93 kg, 165.1 cm) tm6 11:11 Pain Scale: Adult tm6 13:13 Pain Scale: Adult tm6 MDM: 11:11 Patient medically screened. [facility] 12:30 Differential diagnosis: Obesity ruptured disc, sprain. Differential Diagnosis altered earnest mental status, sepsis, flu. Data reviewed: vital signs, nurses notes, lab test result(s), Flu: negative. Consideration of Admission/Observation Escalation of care including admission/observation considered. I considered the following discharge prescriptions or medication management in the emergency department Medications were administered in the Emergency Department. See MAR. Test considered but Not performed: EKG: NO EKG. Historians other than the Patient: Spouse/Significant Other: SPOUSE / SO WELL INFORMED. Care significantly affected by the following chronic conditions: DEPRESSION , TACHYCARDIA. 12/27 11:11 Order name: Flu; Complete Time: 12:24 [facility] 12/27 11:11 Order name: SARS RAPID; Complete Time: 12:24 [facility] 12/27 11:11 Order name: Strep [facility] 12/27 12:21 Order name: Throat Culture EDMS Administered Medications: No medications were administered Disposition Summary: 12/28/23 12:35 Discharge Ordered Notes: Location: Home [facility] Problem: new earnest Symptoms: have improved earnest Condition: Stable earnest Diagnosis - Low back pain earnest - Tachycardia, unspecified - HISTORY OF earnest - Encounter for observation for suspected toxic effect from ingested substance ruled earnest out - 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 INGESTION Followup: earnest - With: Private Physician - When: 2 - 3 days - Reason: Recheck today's complaints, Continuance of care, Re-evaluation by your physician Followup: earnest - With: Frederick Thakkar MD - When: 2 - 3 days - Reason: Recheck today's complaints, Re-evaluation by your physician Discharge Instructions: - Discharge Summary Sheet earnest - Chronic Back Pain earnest - Musculoskeletal Pain earnest - Chronic Back Pain, [id number] earnest - Sinus Tachycardia earnest - Nontoxic Ingestion, Adult earnest Forms: - Work release form earnest - Medication Reconciliation Form earnest - Antibiotic Education earnest - Prescription Opioid Use earnest - Patient Portal Instructions earnest - Leadership Thank You Letter earnest Signatures: Dispatcher [employer] Benoit Ty MD MD cha Masterson, Tawney RN RN tm6
[2023-12-28 13:24] VITALS: TEMP 98.9; O2SAT 98
[2023-12-28 13:26] VITALS: BP 116/58
== END 2023-12-28 13:14 | disposition home or self-care (01) ==
LOC: ER 11:03
DX: Z03.6 Encounter for observation for suspected toxic effect from ingested substance ruled out (principal); T43.295A Adverse effect of other antidepressants, initial encounter; M54.50 Low back pain, unspecified; R00.0 Tachycardia, unspecified; Z88.8 Allergy status to other drugs, medicaments and biological substances; Z91.018 Allergy to other foods; Z11.52 Encounter for screening for COVID-19
CPT/HCPCS: 36415; 87070; 87081; 87804; 87811; 99283